=== PATIENT | male | born 1945 | race African-American/Black ===

== ENCOUNTER 2019-03-25 12:26 | Emergency (ER) | payer MEDICARE ==
[2019-03-25 13:27] LABS: #Eosinphils 0.2 thou/uL (0.0-0.7); #Lymphocytes 1.1 thou/uL (1.20-3.40); #Monocytes 0.8 thou/uL (0.11-0.59); #Neutrophils 4.8 thou/uL (1.40-6.50); %Basophils 0.1 % (0.0-1.0); %Eosinophils 2.3 % (0.0-10.0); %Monocytes 11.8 % (0.0-10.0); %Neutrophils 69.8 % (42.0-75.0); Hemoglobin 12.4 g/dL (14.0-18.0); Mean Corpuscular HGB CONC 33.5 g/dL (32.0-36.0); Mean Corpuscular Hemoglobin 28.4 pg (27.0-31.0); Mean Corpuscular Volume 84.8 fL (78.0-98.0); Mean Platelet Volume 7.5 fL (7.4-10.4); Platelet Count 317 thou/uL (130-400); RBC Distribution Width 14.1 % (11.5-14.5); Red Blood Cell (RBC) Count 4.38 mill/uL (4.70-6.10); White Blood Cell (WBC) Count 6.9 thou/uL (4.8-10.8)
[2019-03-25 13:44] LABS: ALT (SGPT) 9 U/L (8-55); AST (SGOT) 11 U/L (5-34); Albumin 3.8 g/dL (3.4-4.8); Alkaline Phosphatase 64 U/L (40-150); Anion Gap 15 mmol/L (10-20); BUN (Urea Nitrogen) 12 mg/dL (8.4-25.7); Bilirubin, Total 0.2 mg/dL (0.2-1.2); Calc. Creatinine Clearance 0 mL/min (70-130); Calcium 9.8 mg/dL (7.8-10.44); Carbon Dioxide 21 mmol/L (23-31); Chloride 105 mmol/L (98-107); Estimated GFR-MDRD Greater than 90; Globulin 3.4 g/dL (2.4-3.5); Glucose 131 mg/dL (83-110); Lipase 34 U/L (8-78); Potassium 3.7 mmol/L (3.5-5.1); Protein, Total 7.2 g/dL (5.8-8.1); Sodium 137 mmol/L (136-145)
[2019-03-25] MEDS ORDERED: Ondansetron PF 4 MG/2 ML Vial ONE (14:16)
[2019-03-25] MEDS ORDERED: Fentanyl 100 MCG/2 ML VIAL ONE (14:17)
[2019-03-25] MEDS ORDERED: Morphine 4 MG/ML VIAL ONE (15:26)
--- NOTE | 2019-03-25 16:00 | RAD ---
EXAM: CHEST ONE VIEW HISTORY: Rib and epigastric abdominal pain started 3 weeks ago. History of prior lung cancer. COMPARISON: 03/15/2019 FINDINGS: Again noted are postsurgical changes of the right hemithorax with generalized volume loss of the righ t hemithorax. There is radiopaque suture material again overlie the right paramediastinal and right hilar region. Right subclavian Mediport catheter remains in place. There are a few pulmonary nodules seen within the right upper and right midlung zone that are seen on prior CTA chest on 03/15/2019. The larger pulmonary nodule in the lateral aspect left upper lobe is not well demonstrated on this st udy. No pleural effusion or consolidation is seen on the left. Again noted is shift of the mediastinal structures to the right. Cardiac silhouette and pulmonary vasculature are within normal l imits. No obvious lytic or sclerotic osseous lesion is seen. Chest is overall stable when compared to prior exam given differences in inspiration. IMPRESSION: 1. Overall stable postsurgical and likely posttreatment changes of the right hemithorax. There was a better depth of inspiration on the right compared to the prior exam. 2. Pulmonary nodules left lung which were better visualized on CTA of the chest on 03/15/2019..
--- NOTE | 2019-03-29 01:03 | EKG ---
Test Reason : CONFIRM DIAGNOSIS Blood Pressure : / mmHG Vent. Rate : 100 BPM Atrial Rate : 100 BPM P-R Int : 126 ms QRS Dur : 078 ms QT Int : 334 ms P-R-T Axes : 065 019 055 degrees QTc Int : 430 ms Normal sinus rhythm Nonspecific ST and T wave abnormality Abnormal ECG Confirmed by DINO ROONEY ([id number]), story editor LYNDA HACKETT ([id number]) on 03/29/2019 1:02:16 AM Referred By: Confirmed By:DINO ROONEY
== END 2019-03-25 16:44 | disposition home or self-care (01) ==
LOC: ERS 12:26
DX: R10.9 Unspecified abdominal pain (principal); E11.9 Type 2 diabetes mellitus without complications; E78.5 Hyperlipidemia, unspecified; I10 Essential (primary) hypertension; E78.00 Pure hypercholesterolemia, unspecified; N40.0 Benign prostatic hyperplasia without lower urinary tract symptoms; Z79.899 Other long term (current) drug therapy; Z79.82 Long term (current) use of aspirin; Z79.84 Long term (current) use of oral hypoglycemic drugs; Z85.118 Personal history of other malignant neoplasm of bronchus and lung
CPT/HCPCS: 71045; 80053; 83690; 85025; 93005; 96361; 96374; 96375; J2270; J2405; J3010

== ENCOUNTER 2019-04-02 11:23 | Outpatient (CLI) | payer MEDICARE ==
--- NOTE | 2019-04-02 16:03 | PET ---
PET W CT Skull to Mid Thigh History: Lung cancer. C34.81 Comparison: Multiple prior chest CT examinations, most recent March 15, 2019 Findings: There is confluent right supraclavicular adenopathy increase in size from the comparison ex aminations measuring up to 3.2 cm in short axis with SUV max 8.7. Left upper lobe pulmonary nodule is similar in size with SUV max of 4.9. There is abnormal FDG avidity within the confluent soft tissue posterior to the right mainstem bronch us with SUV max 7.4. Focal nodularity along the anterior mediastinum may reflect hypertrophic thymic tissue. Small right pericardiophrenic lymph nodes do not have much greater than background FDG avidity. No abnormal radiotracer uptake within the abdomen or pelvis. No abnormal osseous radiotracer uptake. Atelectatic changes lung bases. No free intraperitoneal gas or fluid. Calcified granulomas throughout the spleen and liver. Small fat-containing umbilical hernia. Impression: Findings of disease recurrence of the right hemithorax with metastatic left upper lobe pu lmonary nodule and marked progression of right supraclavicular adenopathy.
== END 2019-04-02 11:24 | disposition home or self-care (01) ==
LOC: PET 11:23
PROVIDERS: ATTEND Internal Medicine Hematology & Oncology
DX: C34.90 Malignant neoplasm of unspecified part of unspecified bronchus or lung (principal); R59.0 Localized enlarged lymph nodes
CPT/HCPCS: 78815; A9552

== ENCOUNTER 2019-05-20 15:19 | Observation (INO) | payer MEDICARE ==
[2019-05-20] MEDS ORDERED: Pantoprazole 40 MG VIAL ONE (17:16)
[2019-05-20] MEDS ORDERED: Dextrose 5% in Water 1,000 ML IV PRN (18:01)
[2019-05-20] MEDS ORDERED: Dextrose 50% Abboject 50 ML SYRINGE SLOW IVP PRN (18:01)
[2019-05-20] MEDS ORDERED: Insulin Regular 300 UNITS/3 ML VIAL SC PRN ×2 (18:01)
[2019-05-20 19:00] VITALS: BMI 22.8
[2019-05-20 19:04] LABS: Hemoglobin 10.2 g/dL (14.0-18.0)
[2019-05-20] MEDS ORDERED: Calcium Carbonate 500 MG ChewTAB PO PRN (19:14)
[2019-05-20] MEDS ORDERED: Ondansetron ODT 4 MG TAB PO PRN (19:14)
[2019-05-20] MEDS ORDERED: Ondansetron PF 4 MG/2 ML Vial IVP PRN (19:14)
[2019-05-20] MEDS ORDERED: Acetaminophen 325 MG TAB PO PRN (19:14)
[2019-05-20] MEDS ORDERED: Nitroglycerin 0.4 MG TAB (25 Tab Bottle) PO PRN (19:16)
[2019-05-20] MEDS ORDERED: PROVENTIL INHALER 6.7 G (200 INHALATIONS) INH PRN (19:17)
--- NOTE | 2019-05-20 19:20 | HP ---
PRIMARY CARE PHYSICIAN: Dr. Beavers. CHIEF COMPLAINT: Bleeding per rectum. HISTORY OF PRESENT ILLNESS: The patient is a 73-year-old male with lung cancer, on chemotherapy, chronic NSAID use for pain, presented to the emergency room at [place] with above complaints. Around 8:30 a.m., he had bright red blood when he was trying to have a bowel movement. His commode was filled with moderate amount of fresh bright blood. There was no melena or hematemesis. No nausea, vomiting, abdominal discomfort reported. He denies similar symptoms in the past. His last bowel movement was 2 days ago. He has lost his appetite. His last chemotherapy was yesterday. He felt dizzy and weak along with shortness of breath during the above episode. He is also on 81 mg aspirin. He underwent EGD and colonoscopy in the last 3-4 years at [place] [facility] by [address] Sanchez. He is currently on 800 mg ibuprofen almost 2-3 times a day for pain control. PAST MEDICAL HISTORY: 1. Lung cancer, currently on chemotherapy. 2. Diabetes mellitus type 2. 3. Hypertension. 4. Hyperlipidemia. 5. Benign prostatic hypertrophy. 6. COPD. PAST SURGICAL HISTORY: 1. Right lobectomy. 2. EGD colonoscopy. 3. 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 Solitario. ALLERGIES: THE PATIENT IS ALLERGIC TO TRAMADOL AND CODEINE. HE IS CURRENTLY ON NORCO FOR PAIN CONTROL. SOCIAL HISTORY: The patient currently lives at home with his . He is full code, makes his own decision with the help of his family. He denies current use of smoking or drug use. FAMILY HISTORY: Negative for heart disease. CURRENT HOME MEDICATION: 1. Tylenol as needed. 2. [place] as needed. 3. Albuterol inhaler as needed. 4. Aspirin 81 mg daily. 5. Lipitor 10 mg daily. 6. Cardizem extended release 120 mg daily. 7. Advair Diskus 500/50 b.i.d. 8. Folic acid daily. 9. Ibuprofen 800 mg 3 times daily as needed. 10. Remeron 30 mg at bedtime. 11. Multivitamin one tablet daily. 12. Flomax 0.8 mg at bedtime. PHYSICAL EXAMINATION: VITAL SIGNS: Temperature 98.9, respiration of 18, pulse rate of 117 with a blood pressure of 118/72, and O2 saturation 96% on room air. GENERAL: 73-year-old male, in no apparent distress. Feels generally weak and fatigued. HEENT: Head, atraumatic and normocephalic. Sclerae anicteric. Dry mucous membranes. No oral lesion. NECK: Supple. No JVD appreciated. No carotid bruit. LUNGS: Showed diminished air entry at bilateral bases. No wheezing, rales, or rhonchi. HEART: S1 and S2 present. Regular rate and rhythm. No rubs or gallops. ABDOMEN: Soft, nontender. Bowel sounds present. No rebound or guarding. No costovertebral angle tenderness. Rectal examination in the emergency room showed brown stool without any blood. No anal fissure or external hemorrhoids were seen. EXTREMITIES: No edema or calf tenderness. NEUROLOGY: Grossly nonfocal, moves all 4 extremities. PSYCHIATRY: Alert, awake, oriented x3. SKIN: Warm and dry. LYMPH NODES: No palpable lymph nodes in the neck. LABORATORY DATA: WBC 10.3 with hemoglobin 9.5, hematocrit 30.2, platelet of 445. PT 15.5 and INR 1.2, PTT 44.1. Chemistry showed sodium 139, potassium 4.4, chloride 102, bicarb 24, BUN 16, creatinine 1.02, glucose of 187. BNP was 336. IMAGING STUDIES: Chest x-ray by my review was negative for new findings. It showed left upper lobe mass. EKG by my review showed sinus tachycardia with PVCs. IMPRESSION: 1. Lower gastrointestinal bleeding suspected secondary to diverticular bleed versus internal hemorrhoids. Upper GI bleeding appears to be less likely. 2. Acute blood loss anemia. 3. Shortness of breath with elevated BNP, rule out congestive heart failure. 4. Sinus tachycardia secondary to lower gastrointestinal bleeding. 5. Premature ventricular contractions. 6. Chronic kidney disease, stage 2. 7. Lung cancer with last chemotherapy on 05/19/2019. 8. Chronic pain syndrome, on chronic narcotic and NSAIDS. 9. Diabetes mellitus type 2. 10. Hypertension. 11. Hyperlipidemia. 12. Benign prostatic hypertrophy. PLAN: The patient will be monitored on the telemetry unit. He is currently on Protonix drip. We will change to IV 40 mg Protonix b.i.d. Gastroenterology Team will be consulted. We will type and screen. Due to PVCs, we will check his magnesium. Also check his iron profile. Recheck H and H in a.m. Check orthostatic vitals in a.m. We will resume selected home medication except for aspirin and ibuprofen. Clear liquid diet tonight. Vital signs q.4 hourly. We will also try to obtain EGD and colonoscopy report from [facility]. We will get an echocardiogram due to shortness of breath. Plan of care was discussed with the patient and the family in detail, he stated understanding. Job ID: [id number]
[2019-05-20 19:23] LABS: Magnesium 2.7 mg/dL (1.6-2.6)
[2019-05-20] MEDS: Mirtazapine 30 MG TAB PO SCH (20:17)
[2019-05-20] MEDS: Tamsulosin HCl 0.4 MG CAP PO SCH (20:17)
[2019-05-20] MEDS: HYDROcodone/Acetaminophen 5/325 mg Tablet PO PRN (20:27)
[2019-05-21 06:02] LABS: #Monocytes 0.9 thou/uL (0.11-0.59); #Neutrophils 7.4 thou/uL (1.40-6.50); %Basophils 0.1 % (0.0-1.0); %Eosinophils 0.3 % (0.0-10.0); %Lymphocytes 10.7 % (21.0-51.0); %Monocytes 9.1 % (0.0-10.0); %Neutrophils 79.9 % (42.0-75.0); Hemoglobin 9.9 g/dL (14.0-18.0); Mean Corpuscular HGB CONC 32.4 g/dL (32.0-36.0); Mean Corpuscular Hemoglobin 26.9 pg (27.0-31.0); Mean Corpuscular Volume 83.1 fL (78.0-98.0); Mean Platelet Volume 6.9 fL (7.4-10.4); Platelet Count 466 thou/uL (130-400); RBC Distribution Width 14.1 % (11.5-14.5); Red Blood Cell (RBC) Count 3.66 mill/uL (4.70-6.10); White Blood Cell (WBC) Count 9.3 thou/uL (4.8-10.8)
[2019-05-21 06:18] LABS: Anion Gap 17 mmol/L (10-20); BUN (Urea Nitrogen) 17 mg/dL (8.4-25.7); Calc. Creatinine Clearance 62 mL/min (70-130); Calcium 9.4 mg/dL (7.8-10.44); Carbon Dioxide 23 mmol/L (23-31); Chloride 106 mmol/L (98-107); Estimated GFR-MDRD Greater than 90; Glucose 121 mg/dL (83-110); Potassium 4.6 mmol/L (3.5-5.1); Sodium 141 mmol/L (136-145)
[2019-05-21] MEDS: Mometasone/Formoterol 120 PUFF INHALER INH SCH ×2 (07:12→18:27)
[2019-05-21] MEDS ORDERED: FLU VACC TS2019-20(65YR UP)/PF 180 MCG/0.5 ML SYRINGE IM ONE (09:00)
[2019-05-21] MEDS: Atorvastatin Calcium 10 MG TAB PO SCH (09:37)
[2019-05-21] MEDS: Folic Acid 1 MG TAB PO SCH (09:40)
[2019-05-21] MEDS: Pantoprazole 40 MG VIAL IVP SCH ×2 (09:41→20:28)
[2019-05-21] MEDS: HYDROcodone/Acetaminophen 5/325 mg Tablet PO PRN ×2 (09:50→20:42)
[2019-05-21] MEDS ORDERED: Polyethylene Glycol 3350 17 GM Packet PO SCH (13:45)
--- NOTE | 2019-05-21 14:13 | CON ---
DATE OF CONSULTATION: 05/21/2019 CHIEF COMPLAINT: Blood in the stool. HISTORY OF PRESENT ILLNESS: Mr. Pickering is a 73-year-old man who had a red bloody stool mixed with brown stool yesterday morning. He came to the emergency room for further care. He has had no nausea or vomiting. No black stools. No abdominal pain or rectal pain associated with this. He has had constipation lately and has a bowel movement most days, but the stools are hard and he has had to strain at them. He has been taking hydrocodone 4 times a day. This was not completely controlling his pain, so he also started taking ibuprofen 800 mg 4 times a day. He has had history of lung cancer and is undergoing chemotherapy for that. He reports colonoscopy in 2016 was normal. This was done in [place] by Dr. Sanchez. EGD was apparently done at that time as well. PAST MEDICAL HISTORY: Lung cancer, currently on chemotherapy. Diabetes mellitus, hypertension, hyperlipidemia, BPH, and COPD. PAST SURGICAL HISTORY: Right lung lobectomy and removal of metastatic lesion from the vocal cord. FAMILY HISTORY: Negative for GI malignancy. SOCIAL HISTORY: No alcohol, tobacco, or drugs. ALLERGIES: TRAMADOL AND CODEINE. MEDICATIONS: Prior to admission, [place], Tylenol, albuterol, aspirin, Lipitor, Cardizem, Advair, ibuprofen 800 mg 3-4 times per day, Remeron, Flomax, multiple vitamin. He has been taking senna 1 tablet daily lately. REVIEW OF SYSTEMS: Negative x10 systems reviewed, except as stated in history of present illness. PHYSICAL EXAMINATION: VITAL SIGNS: Temperature 98.4, pulse 100, blood pressure 112/66. GENERAL: He is in no acute distress. Alert and oriented x3. HEENT: Eyes have no scleral icterus. Oropharynx is clear without lesions. NECK: No cervical or supraclavicular lymphadenopathy. LUNGS: Clear to auscultation bilaterally. HEART: Regular rate and rhythm without murmur. ABDOMEN: Soft, nontender, and nondistended. Bowel sounds are present. EXTREMITIES: No lower extremity edema. RECTAL: Reveals light brown stool in the rectal vault. LABORATORY DATA: Hemoglobin is 9.9, white blood cell count 9.3, platelets 466. Baseline hemoglobin back 2 months ago was 12.4. INR 1.2 and creatinine 0.97. IMPRESSION: 1. Hematochezia. This is most consistent with hemorrhoidal bleeding. He had 1 bloody stool yesterday morning and 1 this morning. These are brown stools mixed with red blood. Rectal exam currently reveals no blood in the rectal vault and only light brown stool. He had a negative colonoscopy in 2016. We will request that report from [place]. He certainly has no signs of ongoing overt bleeding now. His anemia is likely multifactorial, but he does not appear to have a significant GI bleed. He did have iron studies that showed an iron of 54, TIBC of 166, and a ferritin of a 1000. 2. Chronic opioid induced constipation. We will start MiraLAX 17 g twice daily. If this is inadequate, then consideration for Movantik or continuation of the stimulant laxatives can be considered. RECOMMENDATIONS: 1. MiraLAX twice daily. 2. Stop ibuprofen. 3. Obtain colonoscopy report from [place]. 4. I would anticipate the patient can be discharged home this evening or tomorrow morning. I will sign off for now. Please call if GI can be of assistance. Job ID: [id number]
[2019-05-21] MEDS: Tamsulosin HCl 0.4 MG CAP PO SCH (20:28)
[2019-05-21] MEDS: Mirtazapine 30 MG TAB PO SCH (20:28)
[2019-05-21] MEDS: Polyethylene Glycol 3350 17 GM Packet PO SCH (20:29)
--- NOTE | 2019-05-21 22:35 | PDOC.HOSPP ---
- Subjective Encounter Date: 05/21/19 Encounter Time: 17:00 Subjective: Patient seen and examined for GI bleeding. No new bleeding episodes. Feels gen weak/lightheaded. No other complaints. No overnight events - Objective Vital Signs & Weight: Vital Signs (12 hours) Temp Pulse Resp BP Pulse Ox 05/21/19 19:50 98 F 82 14 127/61 96 05/21/19 15:28 98.6 F 94 18 115/63 96 05/21/19 11:25 98.4 F 100 20 112/66 97 Weight Admit Weight 145 lb 12.8 oz Weight 145 lb 12.8 oz I&O: 05/20/19 05/21/19 05/22/19 06:59 06:59 06:59 Intake Total 720 1040 Balance 720 1040 Result Diagrams: 05/21/19 04:57 05/21/19 04:57 Additional Labs: Accuchecks 05/21/19 05/21/19 05/21/19 20:32 16:54 10:48 POC Glucose 196 H 162 H 138 H EKG Reviewed by me: Yes (Tele SR) Hospitalist ROS - Review of Systems Respiratory: denies: cough, dry, shortness of breath, hemoptysis, SOB with excertion, pleuritic pain, sputum, wheezing, other Cardiovascular: denies: chest pain, palpitations, orthopnea, paroxysmal noc. dyspnea, edema, light headedness, other - Medication Medications: Active Medications Generic Name Dose Route Start Last Admin Trade Name Freq PRN Reason Stop Dose Admin Hydrocodone Bitart/Acetaminophen 1 tab 05/20/19 19:14 05/21/19 20:42 [place] 5/325 PO 1 tab Q4H PRN Administration Moderate Pain (4-6) Atorvastatin Calcium 10 mg 05/21/19 09:00 05/21/19 09:37 Lipitor PO 10 mg DAILY CELESTE Administration Diltiazem HCl 120 mg 05/21/19 09:00 05/21/19 09:38 Cardizem Cd PO 120 mg DAILY CELESTE Administration Folic Acid 0.5 mg 05/21/19 09:00 05/21/19 09:40 Folvite PO 0.5 mg DAILY CELESTE Administration Mirtazapine 30 mg 05/20/19 21:00 05/21/19 20:28 Remeron PO 30 mg HS CELESTE Administration Mometasone Furoate/Formoterol Fumar 2 puff 05/21/19 06:30 05/21/19 18:27 Dulera 200 Mcg/5 Mcg Inhaler INH 2 puff BID-RT CELESTE Administration Pantoprazole Sodium 40 mg 05/21/19 09:00 05/21/19 20:28 Protonix IVP 40 mg Q12HR CELESTE Administration Polyethylene Glycol 17 gm 05/21/19 21:00 05/21/19 20:29 Miralax PO 17 gm BID CELESTE Administration Tamsulosin HCl 0.8 mg 05/20/19 21:00 05/21/19 20:28 Flomax PO 0.8 mg HS CELESTE Administration - Exam Heart: RRR, no gallops Respiratory: CTAB, no rales Gastrointestinal: soft, non-tender, non-distended, normal bowel sounds Extremities: no edema Hosp A/P - Plan DVT proph w/SCDs 1. Lower gastrointestinal bleeding suspected secondary to diverticular bleed versus internal hemorrhoids. 2. Acute blood loss anemia. 3. Shortness of breath with elevated BNP, rule out congestive heart failure. 4. Sinus tachycardia secondary to lower gastrointestinal bleeding. 5. Premature ventricular contractions. 6. Chronic kidney disease, stage 2. 7. Lung cancer with last chemotherapy on 05/19/2019. 8. Chronic pain syndrome, on chronic narcotic and NSAIDS. 9. Diabetes mellitus type 2. 10. Hypertension. 11. Hyperlipidemia. 12. Benign prostatic hypertrophy. PLAN: GI input appreciated H/H in AM DC in AM if stable Await Echo Cont to monitor Cont other meds Await records from Dr Sanchez
[2019-05-22 05:22] LABS: Hemoglobin 9.1 g/dL (14.0-18.0)
[2019-05-22] MEDS: Mometasone/Formoterol 120 PUFF INHALER INH SCH (07:33)
[2019-05-22 08:05] VITALS: BP 108/57; TEMP 97.5
[2019-05-22] MEDS: Folic Acid 1 MG TAB PO SCH (08:50)
[2019-05-22] MEDS: Pantoprazole 40 MG VIAL IVP SCH (08:50)
[2019-05-22] MEDS: Polyethylene Glycol 3350 17 GM Packet PO SCH (08:51)
[2019-05-22] MEDS: Atorvastatin Calcium 10 MG TAB PO SCH (08:51)
--- NOTE | 2019-05-22 10:37 | DIS ---
DATE OF ADMISSION: 05/20/2019 DATE OF DISCHARGE: 05/22/2019 DISCHARGE DISPOSITION: Home. FOLLOWUP: 1. Follow up with primary care physician, Dr. Beavers in 1 week. 2. Follow up with Dr. Sanchez, Gastroenterology in [place] in 1 to 2 weeks. DISCHARGE MEDICATIONS: 1. Protonix 40 mg b.i.d. 2. MiraLAX 17 g b.i.d. All other home medications were left unchanged. The patient was seen and examined on the day of discharge. Denies any new complaints. No new rectal bleeding. The patient had 3 bowel movements in this hospital without any hematochezia or melena. SIGNIFICANT LABORATORY DATA: H and H at discharge 9.1 and on admission, it was 9.5. Reticulocyte is 1.0. Vitamin B12 is 1848. Folic acid 12.7, iron was 54, TIBC 166, ferritin 1091. Sodium 141, potassium 4.6. Echocardiogram showed left ventricular ejection fraction 55% to 60% with a medium-sized pericardial effusion that does not appear to be hemodynamically significant. 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 Bernal. BRIEF HOSPITAL COURSE: The patient is a 73-year-old male with lung cancer, on chemotherapy, presented to the hospital with bleeding per rectum. This happened around 8:30 a.m. on May 20, 2019. His commode was filled with moderate amount of fresh blood. He did not have any other recurrence of this episode. He was monitored in the hospital for observation. He was evaluated by Dr. Bernal. His rectal examination was negative. He underwent a colonoscopy [address] Sanchez that was negative except for colonic polyp. 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 He was advised to follow up with his primary gastroenterology as outpatient. He was advised to discontinue ibuprofen. FINAL DIAGNOSES: 1. Lower gastrointestinal bleed, suspected secondary to internal hemorrhoids versus diverticular bleed. 2. Constipation. 3. Acute blood loss anemia. 4. Shortness of breath with elevated BNP, probably secondary to #1. His echocardiogram showed normal ejection fraction. 5. Moderate pericardial effusion that does not appear to be hemodynamically significant. Primary care physician advised to follow. 6. Sinus tachycardia on admission, resolved. 7. Premature ventricular contractions on EKG on admission. 8. Chronic kidney disease, stage 2. 9. Lung cancer, on chemotherapy, followed by Dr. Devi. 10. Chronic pain syndrome. The patient was advised to discontinue NSAIDs. 11. Diabetes mellitus, type 2. 12. Hypertension. 13. Hyperlipidemia. 14. Benign prostatic hypertrophy. 15. History of anemia secondary to chronic disease. 16. Codeine and tramadol allergy. PLAN: Plan of care was discussed with the patient and the family in detail. They stated understanding. Job ID: [id number]
== END 2019-05-22 12:10 | disposition home or self-care (01) ==
LOC: ERS 15:19 → 2SW 18:28
PROVIDERS: ADMIT Internal Medicine; ATTEND Internal Medicine
DX: K62.5 Hemorrhage of anus and rectum (principal); D62 Acute posthemorrhagic anemia; C34.91 Malignant neoplasm of unspecified part of right bronchus or lung; K59.03 Drug induced constipation; I49.3 Ventricular premature depolarization; T40.2X5A Adverse effect of other opioids, initial encounter; E78.5 Hyperlipidemia, unspecified; N40.0 Benign prostatic hyperplasia without lower urinary tract symptoms; J44.9 Chronic obstructive pulmonary disease, unspecified; R79.89 Other specified abnormal findings of blood chemistry; R00.0 Tachycardia, unspecified; N18.2 Chronic kidney disease, stage 2 (mild); I12.9 Hypertensive chronic kidney disease with stage 1 through stage 4 chronic kidney disease, or unspecified chronic kidney disease; E11.22 Type 2 diabetes mellitus with diabetic chronic kidney disease; G89.4 Chronic pain syndrome; I31.3 Pericardial effusion (noninflammatory); D63.8 Anemia in other chronic diseases classified elsewhere; Z79.82 Long term (current) use of aspirin; Z79.51 Long term (current) use of inhaled steroids; Z79.899 Other long term (current) drug therapy; Z88.5 Allergy status to narcotic agent; Z90.2 Acquired absence of lung [part of]
CPT/HCPCS: 80048; 82607; 82728; 82746; 82962 ×3; 83540; 83550; 83735; 84484; 85014 ×2; 85018 ×2; 85025; 85046; 86850; 86900; 86901; 90662; 93306; 94640 ×2; 96365; 96375; 96376 ×3; 97139; 99285; G0008; G0378 ×3; 36415; 36416; 90471; C9113; J3490

== ENCOUNTER 2019-06-21 15:38 | Inpatient (IN) | payer MEDICARE ==
[~2019-06-21 15:38] MED LIST: Iopamidol-370 76% 500 ML 1 ML ONE
[2019-06-21 16:50] LABS: #Lymphocytes 0.8 thou/uL (1.20-3.40); #Monocytes 1.3 thou/uL (0.11-0.59); #Neutrophils 8.4 thou/uL (1.40-6.50); %Basophils 0.1 % (0.0-1.0); %Eosinophils 0.4 % (0.0-10.0); %Neutrophils 79.5 % (42.0-75.0); Hemoglobin 8.7 g/dL (14.0-18.0); Mean Corpuscular Hemoglobin 26.2 pg (27.0-31.0); Mean Corpuscular Volume 81.8 fL (78.0-98.0); Mean Platelet Volume 8.3 fL (7.4-10.4); Platelet Count 272 thou/uL (130-400); RBC Distribution Width 17.4 % (11.5-14.5); Red Blood Cell (RBC) Count 3.33 mill/uL (4.70-6.10); White Blood Cell (WBC) Count 10.6 thou/uL (4.8-10.8)
[2019-06-21 17:11] LABS: ALT (SGPT) 16 U/L (8-55); AST (SGOT) 21 U/L (5-34); Albumin 3.6 g/dL (3.4-4.8); Alkaline Phosphatase 72 U/L (40-110); Anion Gap 17 mmol/L (10-20); BUN (Urea Nitrogen) 10 mg/dL (8.4-25.7); Bilirubin, Total 0.4 mg/dL (0.2-1.2); Calc. Creatinine Clearance 0 mL/min (70-130); Calcium 9.7 mg/dL (7.8-10.44); Carbon Dioxide 20 mmol/L (23-31); Chloride 104 mmol/L (98-107); Estimated GFR-MDRD Greater than 90; Glucose 107 mg/dL (83-110); Potassium 4.3 mmol/L (3.5-5.1); Protein, Total 7.6 g/dL (5.8-8.1); Sodium 137 mmol/L (136-145)
--- NOTE | 2019-06-21 18:16 | CT ---
CTA CHEST WITH CONTRAST Technique: Axial tomograms were obtained with multiplanar reconstruction and 3D post processing. Indications: Cough, shortness of breath. History of neoplasm. Comparison: CTA chest 03-15-19 FINDINGS: Pleural thickening and scarring in the right apical region is again noted. There is volume loss and s hift of the mediastinum to the right in the upper chest which is a stable finding from the prior stud y. No evidence of pulmonary embolus identified. Thoracic aorta is opacified with no evidence of dissecti on. Diffuse soft tissue opacity of the mediastinum is a stable finding. Review of lung chavez show no inflammatory infiltrate. There are nodules scattered throughout the lef t lung which have increased in number when compared to the exam of 03-15-19. Small nodules seen in the right midlung field are again noted, similar to the prior exam. Numerous focal calcifications at the liver and spleen are again seen, unchanged. IMPRESSION: 1. Post-operative changes in the right chest with diffuse pleural thickening and mediastinal opacity appears stable. Shift of the mediastinum to the right again noted. 2. No evidence of pulmonary embolus. 3. Bilateral pulmonary nodules have increased in number. POS: AGW
[2019-06-21 18:47] LABS: Bacteria/HPF None Seen HPF (None Seen); Bilirubin Negative (Negative); Blood, Urine 3+ (Negative); Clarity Clear (Clear); Glucose, Urine (Dipstick) Normal (Negative); Leukocyte Negative Leu/uL (Negative); Nitrite Negative (Negative); Protein, Urine (Dipstick) 30 mg/dL (Neg-Trace); RBC/HPF Greater than 50 HPF (0-3); Squamous Epithelial None Seen HPF (0-3); Urobilinogen Normal mg/dL (Less than 2)
[2019-06-21 19:28] LABS: Phosphorus 3.2 mg/dL (2.3-4.7)
[2019-06-21] MEDS ORDERED: Acetaminophen 650 MG Suppository PR PRN (19:43)
[2019-06-21] MEDS ORDERED: Dextrose 50% Abboject 50 ML SYRINGE SLOW IVP PRN (20:21)
[2019-06-21] MEDS ORDERED: Dextrose 5% in Water 1,000 ML IV PRN (20:21)
[2019-06-21] MEDS ORDERED: HumaLOG 300 UNITS/3 ML VIAL SC PRN (20:21)
[2019-06-21] MEDS ORDERED: hydrALAZINE 20 MG/ML VIAL SLOW IVP PRN (20:22)
--- NOTE | 2019-06-21 20:32 | HP ---
PRIMARY CARE PROVIDER: Dr. Adán Beavers. CHIEF COMPLAINT: Inability to tolerate oral intake. HISTORY OF PRESENT ILLNESS: Mr. Raheel Beverly is a pleasant 74-year-old gentleman who was seen at [facility] on 06/21/2019. He was hospitalized at this facility from 05/21 to 05/22, of this year for lower GI bleed, suspected secondary to internal hemorrhoids. The patient is able to provide history. Collateral history was obtained from discussion with the patient's , discussion with emergency room physician and review of medical records. The patient was recently diagnosed with recurrence of lung cancer after being cancer-free for 5 years. He has been started on chemotherapy. His last chemotherapy was 2 weeks ago. Over the last few days, he has been spitting up thick mucus. He was seen by his oncologist, Dr. Devi 2 weeks ago. Oncologist recommended 3 Ensure a today. The patient was also told that if he is unable to tolerate, he will need a feeding tube. Today morning, the patient's tried to feed him and he started spitting up the food. She therefore brought him to the emergency room. He also reportedly lost 40 pounds over this summer. The patient does not have any abdominal pain or chest pain. REVIEW OF SYSTEMS: All systems were reviewed and found to be negative except for the pertinent positives mentioned above. PAST MEDICAL HISTORY: Benign prostate hypertrophy, diabetes mellitus type 2, dyslipidemia, hypertension, lung cancer with metastasis to lymph nodes. PAST SURGICAL HISTORY: Right lobectomy. SOCIAL HISTORY: No history of tobacco use, alcohol use, or recreational drug use. FAMILY HISTORY: Diabetes mellitus and heart disease in his mother and colon cancer in his father. CODE STATUS: I discussed his code status. He is DNAR. ALLERGIES: CODEINE AND TRAMADOL. CURRENT MEDICATIONS: 1. Metformin 500 mg 3 times a day. 2. Tamsulosin 0.8 mg at bedtime. 3. Losartan 50 mg daily. 4. Aspirin 81 mg daily. 5. Atorvastatin 10 mg at bedtime. 6. Cartia XT 120 mg daily. 7. Mirtazapine 30 mg at bedtime. 8. PreserVision one tablet 2 times a day. 9. Multivitamins one tablet daily. 10. Advair Diskus 1 puff 2 times a day. 11. Tramadol 50 to 100 mg every 6 hours as needed. 12. [place] 10/325 mg p.r.n. PHYSICAL EXAMINATION: GENERAL: On examination, Mr. Raheel Beverly is awake and alert, not in acute distress. He appears malnourished. VITAL SIGNS: Weight is 61.23 kg. Blood pressure is 129/71, pulse 103, respiratory rate 18, and oxygen saturation 100% on room air. He is afebrile. EYES: No scleral icterus, no conjunctival pallor. ENT: Dry mucosal membranes. No oropharyngeal erythema or exudates. NECK: Supple, nontender, trachea is midline. RESPIRATORY: Accessory muscles of breathing are not active. Chest wall movements are symmetric bilaterally. Diminished breath sounds at both bases. CARDIOVASCULAR: S1 and S2 are heard, tachycardic and regular. Peripheral pulses palpable. NEUROLOGIC: Cranial nerves 2 through 12 are intact. MUSCULOSKELETAL: The patient is able to move all 4 extremities. SKIN: No rashes. PSYCHIATRIC: Normal mood, normal affect. The patient is oriented to person, place, and time. LABORATORY DATA: Mr. Raheel Beverly's labs and investigations were reviewed. Electrocardiogram shows sinus tachycardia. CT angiogram of the chest showed postoperative changes in the right chest with diffuse pleural thickening and mediastinal opacity, which appears stable. He has shift of the mediastinum to the right, demonstrated previously. No evidence of pulmonary embolus. Bilateral pulmonary nodules have increased in number. He has normal electrolytes, normal creatinine, unremarkable LFTs, mildly elevated BNP of 202.9, normal troponin I, normal white count, normocytic anemia with hemoglobin 8.7, and normal platelet count. Urinalysis is negative for nitrite and leukocyte esterase. ASSESSMENT AND PLAN: Mr. Raheel Beverly is a pleasant 74-year-old gentleman, who was seen at [facility] on 06/21/2019. His problem list includes: 1. Poor oral intake: Suspected to be secondary to esophageal obstruction extrinsically from lung mass. General Surgery Service being consulted by emergency room physician for possible placement of G tube. The patient will be admitted to the hospital for further management. 2. Diabetes mellitus type 2: We will start patient on Accu-Cheks and insulin sliding scale. 3. Benign prostate hypertrophy: We will resume tamsulosin when the patient is able to take oral medications. 4. Hypertension: The patient currently n.p.o., we will add p.r.n. IV hydralazine. Many thanks for allowing me to participate in your patient's care. Please feel free to contact me with any questions or concerns. LEVEL OF RISK: Moderate. LEVEL OF COMPLEXITY: Moderate. Job ID: [id number] [id number]
[2019-06-21 21:35] VITALS: BMI 20.4
[2019-06-21] MEDS: Sodium Chloride 0.9% 1,000 ML IV SCH (21:45)
[2019-06-22 06:10] LABS: #Lymphocytes 0.8 thou/uL (1.20-3.40); #Monocytes 1.2 thou/uL (0.11-0.59); #Neutrophils 7.2 thou/uL (1.40-6.50); %Basophils 0.1 % (0.0-1.0); %Eosinophils 0.5 % (0.0-10.0); %Lymphocytes 8.8 % (21.0-51.0); %Monocytes 12.6 % (0.0-10.0); Hemoglobin 8.6 g/dL (14.0-18.0); Mean Corpuscular HGB CONC 32.3 g/dL (32.0-36.0); Mean Corpuscular Hemoglobin 26.6 pg (27.0-31.0); Mean Corpuscular Volume 82.3 fL (78.0-98.0); Mean Platelet Volume 8.3 fL (7.4-10.4); Platelet Count 253 thou/uL (130-400); RBC Distribution Width 17.4 % (11.5-14.5); Red Blood Cell (RBC) Count 3.22 mill/uL (4.70-6.10); White Blood Cell (WBC) Count 9.2 thou/uL (4.8-10.8)
[2019-06-22] MEDS: Sodium Chloride 0.9% 1,000 ML IV SCH ×3 (06:16→22:33)
[2019-06-22 06:34] LABS: Anion Gap 15 mmol/L (10-20); BUN (Urea Nitrogen) 8 mg/dL (8.4-25.7); Calc. Creatinine Clearance 62 mL/min (70-130); Calcium 9.2 mg/dL (7.8-10.44); Carbon Dioxide 20 mmol/L (23-31); Chloride 109 mmol/L (98-107); Estimated GFR-MDRD Greater than 90; Glucose 90 mg/dL (83-110); Sodium 140 mmol/L (136-145)
--- NOTE | 2019-06-22 11:24 | CON ---
DATE OF CONSULTATION: 06/22/2019 CHIEF COMPLAINT: Trouble swallowing. HISTORY OF PRESENT ILLNESS: Mr. Pickering is a 74-year-old man with a history of lung cancer with mediastinal adenopathy. Over the last several months when he swallows food, it only goes down part way and then he has to vomit or cough the food back up. He was transitioned to liquids and Ensure supplements; however, he has continued to lose 30+ pounds over the last few months. He has had no nausea associated with this. No abdominal pain. No diarrhea, constipation, or blood in the stool. He did have radiation to the lung cancer back in 2018. He has just local disease primarily. GI was consulted to evaluate for gastrostomy tube placement. PAST MEDICAL HISTORY: 1. Lung cancer with metastatic disease to the mediastinal lymph node, status post chemotherapy and radiation. 2. BPH. 3. Diabetes mellitus, type 2. 4. Hyperlipidemia. 5. Hypertension. PAST SURGICAL HISTORY: Right lung lobectomy. FAMILY HISTORY: Positive for colon cancer in his father. HABITS: No ongoing alcohol, tobacco, or drugs. ALLERGIES: CODEINE AND TRAMADOL. MEDICATIONS PRIOR TO ADMISSION: 1. Metformin. 2. Tamsulosin. 3. Losartan. 4. Aspirin. 5. Atorvastatin. 6. Cartia. 7. Mirtazapine. 8. Advair. 9. Tramadol. 10. [place]. 11. Multivitamin. REVIEW OF SYSTEMS: Negative x10 systems reviewed except as stated in history of present illness. PHYSICAL EXAMINATION: VITAL SIGNS: Temperature 98.1, pulse 99, oxygen 100%, and blood pressure 129/74. GENERAL: He is in no acute distress. Alert and oriented x3. HEENT: Eyes have no scleral icterus. Oropharynx is clear without lesions. No cervical or supraclavicular lymphadenopathy. LUNGS: Clear to auscultation bilaterally. HEART: Regular rate and rhythm without murmur. ABDOMEN: Soft, nontender, and nondistended. Bowel sounds are present. He is cachectic. EXTREMITIES: No lower extremity edema. LABORATORY DATA: White blood cell count 9.2, hemoglobin 8.6, and platelets 253. Creatinine 0.94, albumin 3.6, bilirubin 0.4, AST 21, ALT 16, and alkaline phosphatase 72. IMPRESSION: 1. Lung cancer, metastatic to the mediastinal lymph nodes, status post chemotherapy and radiation in the past. 2. Protein malnutrition and severe weight loss. 3. Esophageal dysphagia, believed to be secondary to impingement of the lung cancer on the esophagus with the mediastinal lymph nodes. Stricture related to radiation would be much less likely. RECOMMENDATIONS: 1. We will plan EGD with percutaneous endoscopic gastrostomy tube placement today. 2. Preprocedure antibiotics. Job ID: [id number]
[2019-06-22] MEDS ORDERED: Ketamine 50 MG/ML (10ML VIAL) ONE (12:49)
[2019-06-22] MEDS ORDERED: Ondansetron HCl/PF 4 MG/2 ML Vial IVP PRN (13:33)
[2019-06-22] MEDS ORDERED: Promethazine HCl 25 MG/ML VIAL SLOW IVP PRN (13:33)
[2019-06-22] MEDS ORDERED: Meperidine HCl/PF 25 MG/ML VIAL SLOW IVP PRN (13:33)
[2019-06-22] MEDS ORDERED: Promethazine HCl 25 MG/ML VIAL IM PRN (13:33)
[2019-06-22] MEDS ORDERED: PROPOFOL 200 MG/20 ML VIAL ONE (14:00)
[2019-06-22] MEDS ORDERED: Lidocaine 1% PF 5 ML VIAL ONE (14:00)
[2019-06-22] MEDS ORDERED: Morphine 2 MG/ML SYRINGE SLOW IVP PRN (17:22)
[2019-06-22] MEDS ORDERED: Pancrelipase DR 12000 1 CAP FS PRN (17:35)
[2019-06-22] MEDS ORDERED: Sodium Bicarbonate Tab 325 MG TAB PER TUBE PRN (17:35)
--- NOTE | 2019-06-22 19:23 | PDOC.HOSPP ---
- Subjective Encounter Date: 06/22/19 Encounter Time: 10:20 Subjective: Pt seen for followup re: esophageal obstruction. Did not sleep well, no new complaints today. - Objective Vital Signs & Weight: Vital Signs (12 hours) Temp Pulse Resp BP Pulse Ox 06/22/19 15:15 97.3 F L 95 15 108/65 99 06/22/19 14:45 98.3 F 101 H 16 122/76 98 06/22/19 14:25 84 18 117/73 100 06/22/19 14:09 98.2 F 84 18 117/73 100 06/22/19 11:40 97.6 F 99 14 119/73 100 06/22/19 09:00 100 06/22/19 07:28 98.1 F 100 15 129/74 100 Weight Admit Weight 130 lb 4.8 oz Weight 130 lb 4.8 oz I&O: 06/21/19 06/22/19 06/23/19 06:59 06:59 06:59 Intake Total 800 Output Total 1050 Balance -250 Result Diagrams: 06/22/19 04:55 06/22/19 04:55 Additional Labs: Accuchecks 06/22/19 06/22/19 06/22/19 17:09 11:23 05:54 POC Glucose 92 93 97 06/22/19 00:29 POC Glucose 97 Labs and MARs reviewed by pa Hospitalist ROS - Review of Systems Constitutional: reports: weakness. denies: fever, chills, sweats, malaise Cardiovascular: denies: chest pain, palpitations, orthopnea, paroxysmal noc. dyspnea, edema, light headedness Gastrointestinal: reports: other (difficulty swallowing) - Medication Medications: Active Medications Generic Name Dose Route Start Last Admin Trade Name Freq PRN Reason Stop Dose Admin Sodium Chloride 1,000 mls @ 100 mls/hr 06/21/19 20:00 06/22/19 16:03 Normal Saline 0.9% IV Not Given .Q10H CELESTE Morphine Sulfate 2 mg 06/22/19 17:22 06/22/19 17:34 Morphine SLOW IVP 2 mg Q4H PRN Administration Pain Sodium Chloride 10 ml 06/22/19 09:00 06/22/19 09:44 Flush - Normal Saline IVF Not Given Q12HR CELESTE - Exam General - other findings: Severe protein calorie alnutrition ENT: dry oral mucosa Neck: supple Heart: RRR Respiratory: CTAB Gastrointestinal: soft, non-tender Skin: no rashes Psychiatric: normal affect, normal behavior Hosp A/P (1) Decreased oral intake Code(s): R63.8 - OTHER SYMPTOMS AND SIGNS CONCERNING FOOD AND FLUID INTAKE Status: Acute (2) Dehydration Code(s): E86.0 - DEHYDRATION Status: Acute (3) Severe protein-calorie malnutrition Code(s): E43 - UNSPECIFIED SEVERE PROTEIN-CALORIE MALNUTRITION Status: Chronic (4) 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 Tube feeds per dietitian recommendations.
--- NOTE | 2019-06-22 20:16 | OP ---
DATE OF PROCEDURE: 06/22/2019 PROCEDURE PERFORMED: Esophagogastroduodenoscopy with percutaneous endoscopic gastrostomy tube placement. PREOPERATIVE DIAGNOSIS: Esophageal dysphagia secondary to external compression of the esophagus from his mediastinal mass. DESCRIPTION OF PROCEDURE: Informed consent was obtained from the patient. He was sedated with total intravenous anesthesia. The bite block was placed and the endoscope was advanced easily to the second portion of the duodenum and retroflexion was performed in the stomach. The esophagus had 3 ulcers in the proximal esophagus measuring 8 mm to 1.5 cm. These ulcers were located just above an area of external compression in the mid esophagus. There was also some retained food particles above the area of external compression. The food was advanced down into the stomach with the endoscope. The distal esophagus and stomach including retroflexed views appeared normal. There was some redundant tissue in the fundus around the GE junction that has the appearance of a fundoplication. The stomach was otherwise normal. The pylorus and first and second portions of the duodenum were normal. The stomach was fully insufflated, and transillumination was performed in the left upper quadrant below the left ribs. The appropriate site was identified by palpation and transillumination. The patient received 2 g of Ancef prior to the procedure. The skin was sterilized with chlorhexidine. The skin was anesthetized with 5 mL of 1% lidocaine. A small skin incision was performed with a scalpel. The catheter was placed through the incision into the stomach under direct visualization easily in one attempt. The wire was placed through the catheter and grasped with snare and pulled out through the patient's mouth. The 20-Welsh gastrostomy tube was then placed by the pull-through technique. There was a rubber internal bumper. The external bumper was placed at 2.5 cm. Triple antibiotic ointment was applied and the site was dressed. IMPRESSION: 1. Three ulcers in the proximal esophagus measuring 8 mm to 1.5 cm. These ulcers are located above an area of external compression and likely the results of either pill esophagitis or just mechanical ischemia from retained food above the area of compression. These ulcers have a benign appearance. 2. Otherwise, normal esophagogastroduodenoscopy. 3. 20-Welsh gastrostomy tube was placed by the pull-through technique. RECOMMENDATIONS: 1. Proton pump inhibitor. 2. Start feeds in 12 hours. Job ID: [id number]
[2019-06-23 06:12] LABS: #Lymphocytes 0.7 thou/uL (1.20-3.40); #Neutrophils 9.4 thou/uL (1.40-6.50); %Basophils 0.1 % (0.0-1.0); %Eosinophils 0.3 % (0.0-10.0); %Lymphocytes 6.1 % (21.0-51.0); %Monocytes 8.7 % (0.0-10.0); %Neutrophils 84.8 % (42.0-75.0); Hemoglobin 7.9 g/dL (14.0-18.0); Mean Corpuscular HGB CONC 30.6 g/dL (32.0-36.0); Mean Corpuscular Hemoglobin 25.2 pg (27.0-31.0); Mean Corpuscular Volume 82.5 fL (78.0-98.0); Mean Platelet Volume 8.1 fL (7.4-10.4); Platelet Count 275 thou/uL (130-400); RBC Distribution Width 17.7 % (11.5-14.5); Red Blood Cell (RBC) Count 3.11 mill/uL (4.70-6.10); White Blood Cell (WBC) Count 11.1 thou/uL (4.8-10.8)
[2019-06-23 06:35] LABS: Anion Gap 15 mmol/L (10-20); BUN (Urea Nitrogen) 8 mg/dL (8.4-25.7); Calc. Creatinine Clearance 68 mL/min (70-130); Calcium 8.8 mg/dL (7.8-10.44); Carbon Dioxide 18 mmol/L (23-31); Chloride 114 mmol/L (98-107); Estimated GFR-MDRD Greater than 90; Glucose 119 mg/dL (83-110); Magnesium 1.6 mg/dL (1.6-2.6); Phosphorus 3.1 mg/dL (2.3-4.7); Potassium 3.7 mmol/L (3.5-5.1); Sodium 143 mmol/L (136-145)
[2019-06-23] MEDS ORDERED: PROVENTIL INHALER 6.7 G (200 INHALATIONS) INH PRN (08:27)
[2019-06-23] MEDS: Folic Acid 1 MG TAB PER TUBE SCH (08:54)
[2019-06-23] MEDS: Aspirin Chewable 81 MG TAB PER TUBE SCH (08:55)
[2019-06-23] MEDS: Atorvastatin Calcium 10 MG TAB PER TUBE SCH (08:55)
[2019-06-23] MEDS: Vit A,C & E/Lutein/Minerals Tablet PER TUBE SCH (08:55)
[2019-06-23] MEDS: Sodium Chloride 0.9% 1,000 ML IV SCH ×2 (08:56→19:31)
[2019-06-23] MEDS ORDERED: Docusate 100 MG CAP PER TUBE SCH (09:45)
[2019-06-23] MEDS ORDERED: Clopidogrel Bisulfate 75 MG TAB ONE (17:35)
[2019-06-23] MEDS: Mometasone/Formoterol 120 PUFF INHALER INH SCH (18:14)
[2019-06-23] MEDS ORDERED: Cipro 250 MG TAB PER TUBE SCH (20:00)
--- NOTE | 2019-06-23 20:04 | PDOC.HOSPP ---
- Subjective Encounter Date: 06/23/19 Encounter Time: 10:40 Subjective: Pt seen for followup re: decreased oral intake. Feels better. - Objective Vital Signs & Weight: Vital Signs (12 hours) Temp Pulse Resp BP Pulse Ox 06/23/19 15:56 97.5 F L 88 17 109/70 100 06/23/19 12:00 97.5 F L 99 17 118/63 99 Weight Admit Weight 130 lb 4.8 oz Weight 130 lb 4.8 oz I&O: 06/22/19 06/23/19 06/24/19 06:59 06:59 06:59 Intake Total 800 Output Total 1450 Balance -650 Result Diagrams: 06/23/19 05:41 06/23/19 05:41 Additional Labs: Accuchecks 06/23/19 06/23/19 06/23/19 15:55 12:24 05:44 POC Glucose 144 H 151 H 126 H 06/22/19 20:07 POC Glucose 92 Labs and MARs reviewed by hi Hospitalist ROS - Review of Systems Cardiovascular: denies: chest pain, palpitations, orthopnea, paroxysmal noc. dyspnea, edema, light headedness Gastrointestinal: denies: nausea, vomiting, abdominal pain, diarrhea, constipation, melena, hematochezia - Medication Medications: Active Medications Generic Name Dose Route Start Last Admin Trade Name Willianq PRN Reason Stop Dose Admin Aspirin 81 mg 06/23/19 09:00 06/23/19 08:55 Aspirin Chewable PER TUBE 81 mg DAILY CELESTE Administration Atorvastatin Calcium 10 mg 06/23/19 09:00 06/23/19 08:55 Lipitor PER TUBE 10 mg DAILY CELESTE Administration Folic Acid 0.5 mg 06/23/19 09:00 06/23/19 08:54 Folvite PER TUBE 0.5 mg DAILY CELESTE Administration Sodium Chloride 1,000 mls @ 100 mls/hr 06/21/19 20:00 06/23/19 19:31 Normal Saline 0.9% IV Not Given .Q10H CELESTE Mometasone Furoate/Formoterol Fumar 2 puff 06/23/19 18:30 06/23/19 18:14 Dulera 200 Mcg/5 Mcg Inhaler INH 2 puff BID-RT CELESTE Administration Multivitamins/Minerals 1 tab 06/23/19 09:00 06/23/19 08:55 Ocuvite With Lutein PER TUBE 1 tab DAILY CELESTE Administration Sodium Chloride 10 ml 06/22/19 09:00 06/23/19 19:31 Flush - Normal Saline IVF Not Given Q12HR CELESTE - Exam General Appearance: NAD Eye: anicteric sclera ENT: moist mucosa Neck: supple Heart: RRR, no rubs Respiratory: CTAB Gastrointestinal: soft, non-tender Musculoskeletal: diffuse muscle atrophy Psychiatric: normal affect, normal behavior Hosp A/P (1) Decreased oral intake Code(s): R63.8 - OTHER SYMPTOMS AND SIGNS CONCERNING FOOD AND FLUID INTAKE Status: Acute (2) Dehydration Code(s): E86.0 - DEHYDRATION Status: Acute (3) Severe protein-calorie malnutrition Code(s): E43 - UNSPECIFIED SEVERE PROTEIN-CALORIE MALNUTRITION Status: Chronic (4) 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 Pt has a h/o urinary retention, relatively new. Consult urology. Change oral meds to per tube. If BP is high, consider short-acting cardizem (Cardia XT cannot be given by PEG tube).
--- NOTE | 2019-06-23 20:16 | PRG ---
DATE OF SERVICE: 06/23/2019 SUBJECTIVE: Mr. Pickering is tolerating his tube feeds well. He has no abdominal pain. OBJECTIVE: VITAL SIGNS: Temperature is 97.5, pulse 88, blood pressure 109/70. GENERAL: He is in no acute distress alert and oriented. LUNGS: Clear to auscultation bilaterally. ABDOMEN: Soft, nontender, nondistended. The PEG site is clear and healthy-appearing. The external bumper is now at 4 cm. HEART: Regular rate and rhythm. LABORATORY DATA: White blood cell count 11.1, hemoglobin 7.9. IMPRESSION: 1. Esophageal dysphagia secondary to extrinsic compression in the mid esophagus. This has also created ulcerations of the esophagus above the external compression. These ulcerations are likely from pill esophagitis and mechanical irritation from food and pills getting stuck in this area of the esophagus. Hopefully, his dysphagia will improve further as these ulcerations heal up. 2. Lung cancer with mediastinal adenopathy. 3. Status post percutaneous endoscopic gastrostomy tube placement yesterday. RECOMMENDATIONS: 1. Continue tube feeds. 2. Follow up with Oncology. 3. I will sign off. Please call if GI can be of assistance. 4. Proton pump inhibitor daily. Job ID: [id number]
[2019-06-23] MEDS: Tamsulosin HCl 0.4 MG CAP PO SCH (21:00)
[2019-06-23] MEDS: Mirtazapine 30 MG TAB PER TUBE SCH (21:00)
[2019-06-23] MEDS: Ciprofloxacin 500 MG TAB PER TUBE SCH (21:00)
[2019-06-23] MEDS: Docusate 100 MG CAP PER TUBE SCH (21:00)
--- NOTE | 2019-06-24 00:38 | CON ---
DATE OF CONSULTATION: 06/23/2019 REASON FOR CONSULTATION: Urinary retention. HISTORY OF PRESENT ILLNESS: Mr. Ron Beverly is a pleasant 74-year-old male, patient of Dr. Matthew Trent in Urology, who presented to the hospital on this admission with inability to swallow secondary to metastatic lung cancer. The patient has been having intermittent issues with voiding at home. He was originally well managed on Flomax under Dr. Trent's care. The patient was seen in the [facility] and a Booth catheter placed prior to Thanksgiving. This was later removed before Thanksgiving and the patient subsequently went immediately into urinary retention with frequent small volume voids. He did ultimately get admitted here on 06/21/2019 and the Booth catheter that was replaced in the emergency department at the [facility] was left in place. The patient is interested in having a voiding trial for his catheter, but has not been on suitable medical therapy for that. Due to the patient's obstructed esophagus, he underwent PEG tube placement, he now has that in place. He was started back on tube feeds for both nutrition and fluid support. His indwelling Booth catheter remains in place and is draining clear colored urine. PAST MEDICAL HISTORY: 1. Prostate hypertrophy with obstruction, previously on Flomax. 2. Diabetes mellitus, type 2. 3. Dyslipidemia. 4. Hypertension. 5. Metastatic colon cancer. PAST SURGICAL HISTORY: Patient underwent a right lobectomy. SOCIAL HISTORY: The patient is retired and is not a current user of tobacco or alcohol. FAMILY MEDICAL HISTORY: Positive for diabetes mellitus and heart disease. ALLERGIES: THE PATIENT HAS REPORTED ALLERGIES TO CODEINE AND TRAMADOL. OUTPATIENT MEDICATION LIST: Included the followin. Metformin 500 mg 3 times daily. 2. Tamsulosin 0.8 mg at bedtime. 3. Losartan 50 mg p.o. daily. 4. Aspirin 81 mg p.o. daily. 5. Atorvastatin 10 mg p.o. at bedtime. 6. Cardia XT 120 mg daily. 7. Mirtazapine 30 mg p.o. at bedtime. 8. PreserVision 1 tablet two times daily. 9. Daily multivitamin. 10. Advair Diskus one puff twice daily. 11. Tramadol 50-100 mg every 6 hours as needed. 12. [place] 10/325 as needed for pain. PHYSICAL EXAMINATION: VITAL SIGNS: Current temperature is 97.8, pulse 88, respirations 17, O2 saturation on room air is 100%, current blood pressure is 109/70. GENERAL: This is a pleasant awake, alert, male, in no apparent distress, who looks relatively cachectic. LUNGS: Clear to auscultation bilaterally with COPD type changes. CHEST: Chest wall is relatively thin. CARDIAC: Regular rate and rhythm. ABDOMEN: Soft and nontender except in the immediate area of PEG tube site. The PEG tube remains in place. A tube feed is running at time of this evaluation. : A Booth catheter remains in place and is draining straw-colored urine. This was on tension due to a StatLock type device, which was removed during the course of exam. Testes are benign bilaterally. Digital rectal examination finds prostate gland, which palpates to about 35 g. It is not tender on examination. Rectal tone is fair. EXTREMITIES: The patient has sequential compression devices in place bilaterally in the lower extremities. Able to move all 4 extremities against gravity. LABORATORY STUDIES: A urinalysis obtained on 06/21/2019 showed urine gravity of 1.046 indicating high degree of dehydration on admission, 30 mg/dL of protein, 10 mg/dL of ketones, blood was 3+ with greater than 50 red cells seen per high-power field and 4-6 white cells seen per high-power field. Serum chemistries today show chloride of 114, carbon dioxide 18, blood urea nitrogen of 8, estimated glomerular filtration rate greater than 90. Serum glucose was 119. ASSESSMENT AND PLAN: 1. Urinary retention. The patient has been off his medications for benign prostatic hypertrophy and should be restarted back on them. Per tube, the tamsulosin can be administered by opening the capsule and administering per the tube. Cipro will probably have to be crushed to appropriate degree, Avodart and finasteride due to the teratogenic effects potentially on nursing staff, I am not recommending these medications to be crushed or applied per tube and this medication will have to wait until patient has established tract that is appropriate for administration of medicines of that type. 2. Retention voiding trial plans. The patient has not been adequately covered on appropriate medications to allow a voiding trial to did occur successfully since he has had failed voiding trials as an outpatient. We recommended the medical therapy be continued as an outpatient and the patient followup in my office for a voiding trial. 3. Male health issues. Digital rectal examination not suggestive of prostate cancer. Peostate-specific antigen is not own. Over 70 minutes of initial consultation, evaluation and assessment time was spent on assessment of this patient today. Job ID: [id number]
[2019-06-24] MEDS ORDERED: Ciprofloxacin 500 MG TAB ONE (04:47)
[2019-06-24] MEDS: Ciprofloxacin 500 MG TAB PER TUBE SCH ×2 (05:00→22:12)
[2019-06-24] MEDS: Mometasone/Formoterol 120 PUFF INHALER INH SCH ×2 (08:10→20:02)
[2019-06-24] MEDS: Atorvastatin Calcium 10 MG TAB PER TUBE SCH (08:53)
[2019-06-24] MEDS: Docusate 100 MG CAP PER TUBE SCH ×2 (08:53→22:12)
[2019-06-24] MEDS: Sodium Chloride 0.9% 1,000 ML IV SCH ×2 (08:53→17:23)
[2019-06-24] MEDS: Folic Acid 1 MG TAB PER TUBE SCH (08:53)
[2019-06-24] MEDS: Aspirin Chewable 81 MG TAB PER TUBE SCH (08:53)
[2019-06-24] MEDS: Vit A,C & E/Lutein/Minerals Tablet PER TUBE SCH (08:53)
[2019-06-24 13:03] LABS: #Lymphocytes 0.7 thou/uL (1.20-3.40); #Neutrophils 6.5 thou/uL (1.40-6.50); %Basophils 0.1 % (0.0-1.0); %Eosinophils 0.5 % (0.0-10.0); %Monocytes 12.6 % (0.0-10.0); %Neutrophils 78.8 % (42.0-75.0); Hemoglobin 8.3 g/dL (14.0-18.0); Mean Corpuscular Volume 83.8 fL (78.0-98.0); Mean Platelet Volume 8.1 fL (7.4-10.4); Platelet Count 310 thou/uL (130-400); RBC Distribution Width 18.1 % (11.5-14.5); Red Blood Cell (RBC) Count 3.19 mill/uL (4.70-6.10); White Blood Cell (WBC) Count 8.3 thou/uL (4.8-10.8)
[2019-06-24 16:32] LABS: Anion Gap 15 mmol/L (10-20); BUN (Urea Nitrogen) 7 mg/dL (8.4-25.7); Calc. Creatinine Clearance 73 mL/min (70-130); Calcium 8.7 mg/dL (7.8-10.44); Carbon Dioxide 18 mmol/L (23-31); Chloride 114 mmol/L (98-107); Estimated GFR-MDRD Greater than 90; Magnesium 1.5 mg/dL (1.6-2.6); Potassium 3.7 mmol/L (3.5-5.1); Sodium 143 mmol/L (136-145)
[2019-06-24 16:38] LABS: Glucose 165 mg/dL (83-110)
[2019-06-24 16:40] LABS: Phosphorus 1.8 mg/dL (2.3-4.7)
[2019-06-24] MEDS ORDERED: Sodium Phosphate 30 MMOL in Sodium Chloride 0.9% 250 ML 250 ML IVPB SCH (16:45)
--- NOTE | 2019-06-24 18:40 | PDOC.HOSPP ---
- Subjective Encounter Date: 06/24/19 Encounter Time: 10:40 Subjective: Pt seen for followup re: poor oral intake. States he feels better. - Objective Vital Signs & Weight: Vital Signs (12 hours) Temp Pulse Resp BP Pulse Ox 06/24/19 16:03 97.5 F L 92 18 142/76 H 99 Weight Admit Weight 130 lb 4.8 oz Weight 130 lb 4.8 oz I&O: 06/23/19 06/24/19 06/25/19 06:59 06:59 06:59 Intake Total 800 Output Total 1450 1000 Balance -650 -1000 Result Diagrams: 06/24/19 07:25 06/24/19 07:25 Additional Labs: Accuchecks 06/24/19 06/24/19 06/24/19 16:08 11:32 05:21 POC Glucose 155 H 134 H 146 H 06/23/19 20:43 POC Glucose 173 H Labs and MARs reviewed by mn Hospitalist ROS - Review of Systems Constitutional: denies: fever, chills, sweats, weakness, malaise Cardiovascular: denies: chest pain, palpitations, orthopnea, paroxysmal noc. dyspnea, edema, light headedness Neurological: denies: weakness, numbness, incoordination, change in speech, confusion, seizures - Medication Medications: Active Medications Generic Name Dose Route Start Last Admin Trade Name Willianq PRN Reason Stop Dose Admin Aspirin 81 mg 06/23/19 09:00 06/24/19 08:53 Aspirin Chewable PER TUBE 81 mg DAILY CELESTE Administration Atorvastatin Calcium 10 mg 06/23/19 09:00 06/24/19 08:53 Lipitor PER TUBE 10 mg DAILY CELESTE Administration Ciprofloxacin 500 mg 06/23/19 20:00 06/24/19 05:00 Cipro PER TUBE 500 mg BID@0600,2000 CELESTE Administration Docusate Sodium 100 mg 06/23/19 21:00 06/24/19 08:53 Colace PER TUBE 100 mg BID CELESTE Administration Folic Acid 0.5 mg 06/23/19 09:00 06/24/19 08:53 Folvite PER TUBE 0.5 mg DAILY CELESTE Administration Sodium Chloride 1,000 mls @ 100 mls/hr 06/21/19 20:00 06/24/19 17:23 Normal Saline 0.9% IV 1,000 mls .Q10H CELESTE Administration Sodium Phosphate 30 mmol/ 260 mls @ 43.333 mls/hr 06/24/19 16:45 06/24/19 17: 20 Sodium Chloride IVPB 06/24/19 18:45 260 mls NOW CELESTE Administration Mirtazapine 30 mg 06/23/19 21:00 06/23/19 21:00 Remeron PER TUBE 30 mg HS CELESTE Administration Mometasone Furoate/Formoterol Fumar 2 puff 06/23/19 18:30 06/24/19 08:10 Dulera 200 Mcg/5 Mcg Inhaler INH 2 puff BID-RT CELESTE Administration Multivitamins/Minerals 1 tab 06/23/19 09:00 06/24/19 08:53 Ocuvite With Lutein PER TUBE 1 tab DAILY CELESTE Administration Sodium Chloride 10 ml 06/22/19 09:00 06/24/19 08:53 Flush - Normal Saline IVF 10 ml Q12HR CELESTE Administration Tamsulosin HCl 0.4 mg 06/23/19 21:00 06/23/19 21:00 Flomax PO 0.4 mg HS CELESTE Administration - Exam General Appearance: NAD Eye: anicteric sclera ENT: moist mucosa Neck: supple Heart: RRR Respiratory: CTAB Gastrointestinal: soft, non-tender Gastrointestinal - other findings: PEG tube Psychiatric: normal affect, normal behavior Hosp A/P (1) Decreased oral intake Code(s): R63.8 - OTHER SYMPTOMS AND SIGNS CONCERNING FOOD AND FLUID INTAKE Status: Acute (2) Dehydration Code(s): E86.0 - DEHYDRATION Status: Acute (3) Severe protein-calorie malnutrition Code(s): E43 - UNSPECIFIED SEVERE PROTEIN-CALORIE MALNUTRITION Status: Chronic (4) 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 Changed oral meds to per tube. HTN controlled. Discussed with . She would like to administer tibe feeds at home (not through HH).
[2019-06-24] MEDS: Acetaminophen 325 MG TAB PER TUBE PRN (22:12)
[2019-06-24] MEDS: Tamsulosin HCl 0.4 MG CAP PO SCH (22:12)
[2019-06-24] MEDS: Mirtazapine 30 MG TAB PER TUBE SCH (22:13)
[2019-06-25] MEDS: Ciprofloxacin 500 MG TAB PER TUBE SCH ×2 (05:41→21:10)
[2019-06-25 06:48] LABS: Magnesium 1.4 mg/dL (1.6-2.6); Phosphorus 3.2 mg/dL (2.3-4.7)
[2019-06-25] MEDS: Mometasone/Formoterol 120 PUFF INHALER INH SCH ×2 (07:53→20:07)
[2019-06-25] MEDS ORDERED: Magnesium 2 GM/50 ML 2 GM in Premix Bag 1 BAG IVPB SCH (08:00)
[2019-06-25] MEDS: Vit A,C & E/Lutein/Minerals Tablet PER TUBE SCH (09:59)
[2019-06-25] MEDS: Atorvastatin Calcium 10 MG TAB PER TUBE SCH (09:59)
[2019-06-25] MEDS: Aspirin Chewable 81 MG TAB PER TUBE SCH (09:59)
[2019-06-25] MEDS: Folic Acid 1 MG TAB PER TUBE SCH (10:00)
[2019-06-25] MEDS: Sodium Chloride 0.9% 1,000 ML IV SCH ×3 (10:01→21:10)
[2019-06-25] MEDS: Docusate 100 MG CAP PER TUBE SCH (10:01)
--- NOTE | 2019-06-25 15:36 | PDOC.HOSPP ---
- Subjective Encounter Date: 06/25/19 Encounter Time: 09:40 Subjective: Pt seen for followup re: poor oral intake.. States he feels much better. No complaints today. - Objective Vital Signs & Weight: Vital Signs (12 hours) Temp Pulse Resp BP Pulse Ox 06/25/19 07:28 97.7 F 90 16 114/75 97 Weight Admit Weight 130 lb 4.8 oz Weight 130 lb 4.8 oz I&O: 06/24/19 06/25/19 06/26/19 06:59 06:59 06:59 Intake Total 30 2100 Output Total 1000 1250 Balance -970 850 Result Diagrams: 06/24/19 07:25 06/24/19 07:25 Additional Labs: Accuchecks 06/25/19 06/25/19 06/24/19 12:02 04:58 20:15 POC Glucose 141 H 136 H 140 H 06/24/19 16:08 POC Glucose 155 H Labs and MARs reviewed by wv Hospitalist ROS - Review of Systems Gastrointestinal: denies: nausea, vomiting, abdominal pain, diarrhea, constipation, melena, hematochezia Genitourinary: denies: dysuria, frequency, incontinence, hematuria, retention - Medication Medications: Active Medications Generic Name Dose Route Start Last Admin Trade Name Freq PRN Reason Stop Dose Admin Acetaminophen 650 mg 06/23/19 08:27 06/24/19 22:12 Tylenol PER TUBE 650 mg Q4H PRN Administration Headache Aspirin 81 mg 06/23/19 09:00 06/25/19 09:59 Aspirin Chewable PER TUBE 81 mg DAILY CELESTE Administration Atorvastatin Calcium 10 mg 06/23/19 09:00 06/25/19 09:59 Lipitor PER TUBE 10 mg DAILY CELESTE Administration Ciprofloxacin 500 mg 06/23/19 20:00 06/25/19 05:41 Cipro PER TUBE 500 mg BID@0600,2000 CELESTE Administration Docusate Sodium 100 mg 06/23/19 21:00 06/25/19 10:01 Colace PER TUBE 100 mg BID CELESTE Administration Folic Acid 0.5 mg 06/23/19 09:00 06/25/19 10:00 Folvite PER TUBE 0.5 mg DAILY CELESTE Administration Sodium Chloride 1,000 mls @ 100 mls/hr 06/21/19 20:00 06/25/19 14:50 Normal Saline 0.9% IV Not Given .Q10H CELESTE Mirtazapine 30 mg 06/23/19 21:00 06/24/19 22:13 Remeron PER TUBE 30 mg HS CELESTE Administration Mometasone Furoate/Formoterol Fumar 2 puff 06/23/19 18:30 06/25/19 07:53 Dulera 200 Mcg/5 Mcg Inhaler INH 2 puff BID-RT CELESTE Administration Multivitamins/Minerals 1 tab 06/23/19 09:00 06/25/19 09:59 Ocuvite With Lutein PER TUBE 1 tab DAILY CELESTE Administration Sodium Chloride 10 ml 06/22/19 09:00 06/25/19 10:01 Flush - Normal Saline IVF Not Given Q12HR CELESTE Tamsulosin HCl 0.4 mg 06/23/19 21:00 06/24/19 22:12 Flomax PO 0.4 mg HS CELESTE Administration - Exam General Appearance: NAD Eye: anicteric sclera ENT: moist mucosa Neck: supple Heart: RRR Respiratory: CTAB, no rales Gastrointestinal: soft, normal bowel sounds Extremities: no clubbing Skin: normal turgor Neurological: cranial nerve grossly intact Musculoskeletal: no muscle wasting Psychiatric: normal affect, normal behavior Hosp A/P (1) Decreased oral intake Code(s): R63.8 - OTHER SYMPTOMS AND SIGNS CONCERNING FOOD AND FLUID INTAKE Status: Acute (2) Severe protein-calorie malnutrition Code(s): E43 - UNSPECIFIED SEVERE PROTEIN-CALORIE MALNUTRITION Status: Chronic (3) 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 HTN controlled. Discussed with . Likely home 24-48 h
--- NOTE | 2019-06-25 15:37 | CON ---
DATE OF CONSULTATION: REASON FOR CONSULT: Lung cancer. HISTORY OF PRESENT ILLNESS: Mr. 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 He has confluent right supraclavicular adenopathy, posterior tracheal adenopathy associated with right vocal cord paralysis. He has had progressive weight loss and dysphagia over the last several weeks. He presented to the emergency room for weakness and weight loss. He underwent a CT angio, which showed no pulmonary embolism but did show mediastinal shift to the right but was stable as per prior exam. Decision was made to put a feeding tube in. He was seen by Dr. Bernal. Endoscopy showed extrinsic compression in the mid esophagus. He had ulcerations above external compression. He had a percutaneous endoscopic gastrostomy tube placed. Tube feeds were started. He has been tolerating them well with no abdominal pain and actually has been feeling stronger over the past 24 hours. His next treatment was planned for Saturday. We were asked to see him regarding his chemo. PAST MEDICAL HISTORY: 1. Stage IV adenocarcinoma of the right upper lobe. 2. Diabetes. 3. Hypertension. 4. COPD. 5. Hyperlipidemia. 6. Benign prostatic hypertrophy. PAST SURGICAL HISTORY: 1. Laparoscopic Justino fundoplication. 2. Lung biopsy. 3. MediPort placement. ALLERGIES: HE HAS ALLERGY TO CODEINE. HOME MEDICATIONS: 1. Advair. 2. Aspirin. 3. Atorvastatin. 4. Gabapentin. 5. Hydroxyzine. 6. Losartan. 7. Megestrol. 8. Metformin. 9. [place]. 10. Flomax. 11. Folic acid. FAMILY HISTORY: Father had colon cancer. SOCIAL HISTORY: , has 4 children. Lives with his spouse. Former smoker. No alcohol or illicit drug use. REVIEW OF SYSTEMS: Positive for chronic cough. Otherwise, negative. PHYSICAL EXAMINATION: VITAL SIGNS: Temperature 97.7, pulse is 90, respiratory rate 16, blood pressure is 114/75, and he is 97% on room air. GENERAL: This is a well-developed, well-nourished male, in no acute distress. HEENT: Normocephalic, atraumatic. Pupils are equal and reactive to light. NECK: Supple. CARDIOVASCULAR: Regular rate and rhythm. LUNGS: He has decreased breath sounds anterior. ABDOMEN: Soft and nontender. He has a feeding tube in place. EXTREMITIES: No clubbing or cyanosis. SKIN: No rash. HEMATOLOGICAL: No petechiae or purpura. NEUROLOGIC: Nonfocal. PSYCH: He is alert and oriented and appropriate. PERTINENT LABS AND X-RAYS: Current WBCs are 8.3, hemoglobin 8.3, hematocrit 26.7, platelet count is 310,000, he has 78% neutrophils, 8% lymphocytes. Sodium is 143, potassium 3.7, chloride 114, CO2 is 18, BUN is 7, creatinine 0.76, calcium 8.7, phosphorus 3.2, magnesium 1.4, bilirubin 0.4, AST is 21, ALT is 16, alkaline phosphatase is 72, serum total protein is 7.6, albumin 3.6, and globulin 4.0. Radiology per HPI. ASSESSMENT: 1. Stage IV lung cancer. 2. Esophageal dysphagia secondary to external compression from cancer. 3. Status post percutaneous endoscopic gastrostomy tube placement. DISCUSSION: The patient is tolerating his tube feeds. Hope is that he will regain his strength over the next week. Plan to postpone his chemo treatment until a week after next. At which time, he will follow up with Dr. Deiv. One dose of chemo immunotherapy left, at which point, he is placed on Keytruda alone. His CT angio does show worsening of his nodules. However, the comparison was made to a CT scan that was done. Thank you for the consult. We will follow him in the outpatient setting. Job ID: [id number]
[2019-06-25] MEDS: Docusate Sodium 100 MG/10 ML UDCUP PER TUBE SCH (21:09)
[2019-06-25] MEDS: Acetaminophen 325 MG TAB PER TUBE PRN (21:09)
[2019-06-25] MEDS: Mirtazapine 30 MG TAB PER TUBE SCH (21:09)
[2019-06-25] MEDS: Tamsulosin HCl 0.4 MG CAP PO SCH (21:10)
[2019-06-26] MEDS: Ciprofloxacin 500 MG TAB PER TUBE SCH ×2 (06:02→20:46)
[2019-06-26 06:18] LABS: Magnesium 1.6 mg/dL (1.6-2.6); Phosphorus 2.3 mg/dL (2.3-4.7)
[2019-06-26] MEDS: Mometasone/Formoterol 120 PUFF INHALER INH SCH ×2 (07:13→19:00)
[2019-06-26] MEDS: Folic Acid 1 MG TAB PER TUBE SCH (08:45)
[2019-06-26] MEDS: Atorvastatin Calcium 10 MG TAB PER TUBE SCH (08:45)
[2019-06-26] MEDS: Vit A,C & E/Lutein/Minerals Tablet PER TUBE SCH (08:45)
[2019-06-26] MEDS: Aspirin Chewable 81 MG TAB PER TUBE SCH (08:46)
[2019-06-26] MEDS: Docusate Sodium 100 MG/10 ML UDCUP PER TUBE SCH ×2 (08:46→20:46)
[2019-06-26] MEDS: Sodium Chloride 0.9% 1,000 ML IV SCH ×2 (11:13→20:46)
--- NOTE | 2019-06-26 12:35 | PDOC.HOSPP ---
- Subjective Encounter Date: 06/26/19 Encounter Time: 12:33 Subjective: Pt seen for followup re: poor oral intake. States he feels better. - Objective Vital Signs & Weight: Vital Signs (12 hours) Temp Pulse Resp BP Pulse Ox 06/26/19 08:00 97.8 F 97 18 118/71 97 Weight Admit Weight 130 lb 4.8 oz Weight 130 lb 4.8 oz I&O: 06/25/19 06/26/19 06/27/19 06:59 06:59 06:59 Intake Total 30 5079 Output Total 1000 3350 Balance -970 1729 Result Diagrams: 06/24/19 07:25 06/24/19 07:25 Additional Labs: Accuchecks 06/26/19 06/26/19 06/26/19 10:31 08:37 05:58 POC Glucose 221 H 160 H 96 06/26/19 06/25/19 00:15 18:11 POC Glucose 112 H 130 H Labs and MARs reviewed by ne Hospitalist ROS - Review of Systems Genitourinary: denies: dysuria, frequency, incontinence, hematuria, retention Musculoskeletal: denies: neck pain, shoulder pain, arm pain, back pain, hand pain, leg pain, foot pain - Medication Medications: Active Medications Generic Name Dose Route Start Last Admin Trade Name Freq PRN Reason Stop Dose Admin Acetaminophen 650 mg 06/23/19 08:27 06/25/19 21:09 Tylenol PER TUBE 650 mg Q4H PRN Administration Headache Albuterol Sulfate 2 puff 06/23/19 08:27 06/26/19 11:06 Proventil Hfa INH 2 puff Q4H PRN Administration SOB &/or Wheezing Aspirin 81 mg 06/23/19 09:00 06/26/19 08:46 Aspirin Chewable PER TUBE 81 mg DAILY CELESTE Administration Atorvastatin Calcium 10 mg 06/23/19 09:00 06/26/19 08:45 Lipitor PER TUBE 10 mg DAILY CELESTE Administration Ciprofloxacin 500 mg 06/23/19 20:00 06/26/19 06:02 Cipro PER TUBE 500 mg BID@06,1999 CELESTE Administration Docusate Sodium 100 mg 06/25/19 21:00 06/26/19 08:46 Colace Liquid PER TUBE 100 mg BID CELESTE Administration Folic Acid 0.5 mg 06/23/19 09:00 06/26/19 08:45 Folvite PER TUBE 0.5 mg DAILY CELESTE Administration Sodium Chloride 1,000 mls @ 100 mls/hr 06/21/19 20:00 06/26/19 11:13 Normal Saline 0.9% IV 1,000 mls .Q10H CELESTE Administration Mirtazapine 30 mg 06/23/19 21:00 06/25/19 21:09 Remeron PER TUBE 30 mg HS CELESTE Administration Mometasone Furoate/Formoterol Fumar 2 puff 06/23/19 18:30 06/26/19 07:13 Dulera 200 Mcg/5 Mcg Inhaler INH 2 puff BID-RT CELESTE Administration Multivitamins/Minerals 1 tab 06/23/19 09:00 06/26/19 08:45 Ocuvite With Lutein PER TUBE 1 tab DAILY CELESTE Administration Sodium Chloride 10 ml 06/22/19 09:00 06/26/19 08:46 Flush - Normal Saline IVF Not Given Q12HR CELESTE Tamsulosin HCl 0.4 mg 06/23/19 21:00 06/25/19 21:10 Flomax PO 0.4 mg HS CELESTE Administration - Exam General Appearance: NAD, awake alert Eye: anicteric sclera ENT: moist mucosa Neck: supple, symmetric Heart: RRR Respiratory: CTAB Gastrointestinal: soft, non-tender Gastrointestinal - other findings: + PEG tube Extremities: no clubbing Psychiatric: normal affect Hosp A/P (1) Decreased oral intake Code(s): R63.8 - OTHER SYMPTOMS AND SIGNS CONCERNING FOOD AND FLUID INTAKE Status: Acute (2) Severe protein-calorie malnutrition Code(s): E43 - UNSPECIFIED SEVERE PROTEIN-CALORIE MALNUTRITION Status: Chronic (3) 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 Code(s): C34.10 - MALIGNANT NEOPLASM OF UPPER LOBE, UNSP BRONCHUS OR LUNG Status: Chronic (4) Urinary retention Code(s): R33.9 - RETENTION OF URINE, UNSPECIFIED Status: Chronic (5) Dehydration Code(s): E86.0 - DEHYDRATION Status: Resolved - Plan plan discussed w/ family, out of bed/ambulate Pt was on Jevity tube feeds but failed, with high blood sugars. Will need Glucerna tube feeds. HTN controlled. Discussed with . Likely home later today or tomorrow.
[2019-06-26] MEDS: Mirtazapine 30 MG TAB PER TUBE SCH (20:47)
[2019-06-26] MEDS: Tamsulosin HCl 0.4 MG CAP PO SCH (20:47)
[2019-06-26] MEDS: Acetaminophen 325 MG TAB PER TUBE PRN (20:50)
[2019-06-27] MEDS: Ciprofloxacin 500 MG TAB PER TUBE SCH (05:45)
[2019-06-27] MEDS: Sodium Chloride 0.9% 1,000 ML IV SCH (05:45)
[2019-06-27] MEDS: Mometasone/Formoterol 120 PUFF INHALER INH SCH (06:34)
[2019-06-27] MEDS: Docusate Sodium 100 MG/10 ML UDCUP PER TUBE SCH (08:43)
[2019-06-27] MEDS: Aspirin Chewable 81 MG TAB PER TUBE SCH (08:43)
[2019-06-27] MEDS: Vit A,C & E/Lutein/Minerals Tablet PER TUBE SCH (08:43)
[2019-06-27] MEDS: Atorvastatin Calcium 10 MG TAB PER TUBE SCH (08:43)
[2019-06-27] MEDS: Folic Acid 1 MG TAB PER TUBE SCH (08:44)
[2019-06-27 12:01] VITALS: BP 123/77; TEMP 97.8
--- NOTE | 2019-06-28 03:10 | DIS ---
DATE OF ADMISSION: 06/21/2019 DATE OF DISCHARGE: 06/27/2019 PRIMARY CARE PROVIDER: Dr. Adán Beavers. DISCHARGE DIAGNOSES: 1. Decreased oral intake. 2. Severe protein-calorie malnutrition. 3. Urinary retention. 4. History of lung cancer. 5. Dehydration. 6. Hypophosphatemia. 7. Hypomagnesemia. CONDITION OF PATIENT ON THE DAY OF DISCHARGE: Stable. I assessed Mr. Raheel Beverly on the day of discharge. He denies any chest pain or shortness of breath. Vital signs are stable. S1 and S2 are heard, regular. Lungs are clear to auscultation bilaterally. CONSULTATIONS DURING THIS HOSPITALIZATION: 1. Gastroenterology, Dr. Bernal. 2. Urology, Dr. Jesus hCristianson. 3. Oncology, Ms. Brooke Vines. POST-ACUTE CARE FOLLOWUP: The patient is advised to follow up with primary care provider in 3 days' time and with urology, Dr. Zaman in 10 days' time. DISCHARGE MEDICATIONS: 1. Advair Diskus 500/50 one puff 2 times a day. 2. Aspirin 81 mg per tube daily. 3. Lipitor 10 mg per tube daily. 4. Folic acid 0.5 mg per tube daily. 5. Metformin 500 mg per tube daily. 6. Remeron 30 mg per tube at bedtime as needed. 7. Protonix 40 mg per tube daily. 8. Flomax 0.4 mg per tube at bedtime. 9. Ocuvite with lutein one tablet per tube daily. 10. PreserVision soft gel one capsule per tube 2 times a day. 11. Proventil HFA p.r.n. 12. Tylenol p.r.n. HOSPITAL COURSE: Mr. Raheel Beverly is a pleasant 74-year-old gentleman who was admitted to [facility] on 06/21/2019, for poor oral intake secondary to esophageal dysphagia secondary to impingement of lung cancer on the esophagus with mediastinal lymph nodes. He was seen by Gastroenterology Service. He underwent EGD with PEG tube placement. He also had urinary retention. He was seen by Urology Service. He had Booth catheter placed. He has been started on tamsulosin. He was also seen by Oncology Service to plan his ongoing chemotherapy. Following PEG tube placement, he was started on tube feeds. He had a trial of Jevity tube feeds, but failed because of hyperglycemia. He was then switched to Glucerna. He is being discharged home on Glucerna 1.2 tube feeds. Many thanks for allowing me to participate in your patient's care. Please feel free to contact me with any questions or concerns. DISCHARGE DESTINATION: Home. DIET: Tube feeds with Glucerna. ACTIVITY: As tolerated. TIME SPENT: Total amount of time spent coordinating this discharge: 31 minutes. Job ID: [id number]
== END 2019-06-27 12:57 | disposition home or self-care (01) | DRG 180 ==
LOC: ERS 15:38 → T4-B 21:15
PROVIDERS: ADMIT Internal Medicine; ATTEND Internal Medicine
PROC: 0DH63UZ Insertion of Feeding Device into Stomach, Percutaneous Approach (ICD-10-PCS; principal; 2019-06-22)
DX: C34.10 Malignant neoplasm of upper lobe, unspecified bronchus or lung (principal); E43 Unspecified severe protein-calorie malnutrition; C78.89 Secondary malignant neoplasm of other digestive organs; C34.90 Malignant neoplasm of unspecified part of unspecified bronchus or lung; C77.9 Secondary and unspecified malignant neoplasm of lymph node, unspecified; R33.9 Retention of urine, unspecified; E86.0 Dehydration; E83.39 Other disorders of phosphorus metabolism; E11.9 Type 2 diabetes mellitus without complications; E78.5 Hyperlipidemia, unspecified; E83.42 Hypomagnesemia; I10 Essential (primary) hypertension; D64.9 Anemia, unspecified; N40.1 Benign prostatic hyperplasia with lower urinary tract symptoms; E78.00 Pure hypercholesterolemia, unspecified; R13.10 Dysphagia, unspecified; Z88.8 Allergy status to other drugs, medicaments and biological substances; Z68.20 Body mass index [BMI] 20.0-20.9, adult
CPT/HCPCS: 36415; 36416; 71275; 80048; 80053; 81003; 81015; 83605; 83690; 83735; 83880; 84100; 84484; 85025; 93005; 96360; J0690; J2001; J2270; J2704; J3475; J7050; Q9967

== ENCOUNTER 2019-07-23 09:05 | Outpatient (CLI) | payer MEDICARE ==
--- NOTE | 2019-07-23 13:50 | PET ---
PET CT: HISTORY: A 74-year-old male with lung cancer. Malignant neoplasm with overlying sites of right bronchus and l sruthi. The patient's last chemotherapy was in 07/07/2019. Exam was requested to evaluate for subseque nt therapy. TECHNIQUE: PET scan with CT attenuation correction was performed from the base of the brain through the proximal thighs following the intravenous administration of 10.4 mCi [id number] in the right ante cubital fossa. COMPARISON: PET CT dated 04/02/2019. FINDINGS: There is continued hypermetabolic activity in the confluent right supraclavicular lymphadenopathy wit h increase in size from the previous exam measuring approximately 4 cm on the current study and a cur rent SUV of 9 (previously 8.7). The hypermetabolic 2.2 cm left upper lobe lung nodule has an SUV of 8.4 (previously 4.9). A new hype rmetabolic 7 mm peripheral nodule in the left upper lobe inferior to the previously described nodule has an SUV of 2.5. There is continued focally increased uptake posterior to the right main bronchus with an SUV of 6.5 ( previously 7.4). There is a new hypermetabolic right paratracheal lymph node with an SUV of 4.4. There is continued h ypermetabolic activity in the subcarinal lymph nodes with an SUV of 8.8 (previously 5.9). No hypermetabolic liver, adrenal, or skeletal lesions are seen. There is physiologic activity in the GI and tracts and the visualized portions of the brain. The CT scan used for attenuation correction demonstrates no evidence of pleural effusions or ascites. IMPRESSION: Mixed response to therapy since 04/02/2019. POS: JOSE
== END 2019-07-23 09:06 | disposition home or self-care (01) ==
LOC: PET 09:05
PROVIDERS: ATTEND Internal Medicine Hematology & Oncology
DX: C34.90 Malignant neoplasm of unspecified part of unspecified bronchus or lung (principal)
CPT/HCPCS: 78815; A9552

== ENCOUNTER 2019-08-31 22:18 | Inpatient (IN) | payer MEDICARE, OTHER ==
[2019-08-31] MEDS ORDERED: Cefepime 2 GM VIAL ONE (22:41)
[2019-08-31 22:48] LABS: #Basophils 0.1 thou/uL (0.0-0.2); #Eosinphils 0.1 thou/uL (0.0-0.7); #Lymphocytes 0.7 thou/uL (1.20-3.40); #Monocytes 1.4 thou/uL (0.11-0.59); #Neutrophils 12.6 thou/uL (1.40-6.50); %Basophils 0.6 % (0.0-1.0); %Eosinophils 0.4 % (0.0-10.0); %Lymphocytes 4.5 % (21.0-51.0); %Monocytes 9.5 % (0.0-10.0); Mean Corpuscular HGB CONC 31.8 g/dL (32.0-36.0); Mean Corpuscular Hemoglobin 25.7 pg (27.0-31.0); Mean Corpuscular Volume 80.9 fL (78.0-98.0); Mean Platelet Volume 7.5 fL (7.4-10.4); Platelet Count 464 thou/uL (130-400); RBC Distribution Width 17.5 % (11.5-14.5); Red Blood Cell (RBC) Count 3.51 mill/uL (4.70-6.10); White Blood Cell (WBC) Count 14.9 thou/uL (4.8-10.8)
[2019-08-31 23:12] LABS: ALT (SGPT) 7 U/L (8-55); AST (SGOT) 14 U/L (5-34); Albumin 3.1 g/dL (3.4-4.8); Alkaline Phosphatase 69 U/L (40-110); Anion Gap 13 mmol/L (10-20); BUN (Urea Nitrogen) 13 mg/dL (8.4-25.7); Bilirubin, Total 0.2 mg/dL (0.2-1.2); Calc. Creatinine Clearance 0 mL/min (70-130); Calcium 9.3 mg/dL (7.8-10.44); Carbon Dioxide 23 mmol/L (23-31); Chloride 99 mmol/L (98-107); Estimated GFR-MDRD Greater than 90; Globulin 4.2 g/dL (2.4-3.5); Glucose 147 mg/dL (83-110); Potassium 4.4 mmol/L (3.5-5.1); Protein, Total 7.3 g/dL (5.8-8.1); Sodium 131 mmol/L (136-145)
--- NOTE | 2019-08-31 23:23 | RAD ---
Chest AP view INDICATION: History of cough COMPARISON: PET/CT dated July 23, 2019 FINDINGS: Lungs:Pleural parenchymal density and scarring overlying the right upper lobe is stable. Pulmonary no dules of the left upper lobe are stable. Cardiac silhouette:The cardiomediastinal silhouette appears within normal limits. Pulmonary vasculature:Normal Pleural spaces:No pleural effusion or pneumothorax is demonstrated. Upper abdomen:No abnormality seen. Osseous structures: No acute osseous abnormality. Additional findings:Stable right chest wall port IMPRESSION: Stable pleural-parenchymal densities of the right upper lobe. Stable pulmonary nodules of the left upper lobe.
[2019-08-31 23:34] LABS: Bacteria/HPF None Seen HPF (None Seen); Bilirubin Negative (Negative); Blood, Urine Trace (Negative); Clarity Clear (Clear); Glucose, Urine (Dipstick) Normal (Negative); Leukocyte 75 Leu/uL (Negative); Nitrite Negative (Negative); Protein, Urine (Dipstick) 30 mg/dL (Neg-Trace); Squamous Epithelial None Seen HPF (0-3)
[2019-09-01] MEDS ORDERED: Acetaminophen 500 MG TAB ONE (02:44)
[2019-09-01 06:50] LABS: #Basophils 0.1 thou/uL (0.0-0.2); #Eosinphils 0.2 thou/uL (0.0-0.7); #Lymphocytes 1.2 thou/uL (1.20-3.40); #Monocytes 1.7 thou/uL (0.11-0.59); #Neutrophils 11.8 thou/uL (1.40-6.50); %Basophils 0.6 % (0.0-1.0); %Eosinophils 1.1 % (0.0-10.0); %Lymphocytes 7.7 % (21.0-51.0); %Monocytes 11.5 % (0.0-10.0); %Neutrophils 79.1 % (42.0-75.0); Hemoglobin 8.2 g/dL (14.0-18.0); Mean Corpuscular HGB CONC 31.3 g/dL (32.0-36.0); Mean Corpuscular Hemoglobin 25.7 pg (27.0-31.0); Mean Platelet Volume 7.4 fL (7.4-10.4); Platelet Count 458 thou/uL (130-400); RBC Distribution Width 17.7 % (11.5-14.5); Red Blood Cell (RBC) Count 3.21 mill/uL (4.70-6.10)
[2019-09-01 07:07] LABS: ALT (SGPT) Less than 7 U/L (8-55); AST (SGOT) 11 U/L (5-34); Albumin 2.9 g/dL (3.4-4.8); Alkaline Phosphatase 64 U/L (40-110); Anion Gap 13 mmol/L (10-20); BUN (Urea Nitrogen) 9 mg/dL (8.4-25.7); Bilirubin, Total 0.3 mg/dL (0.2-1.2); Calc. Creatinine Clearance 77 mL/min (70-130); Carbon Dioxide 21 mmol/L (23-31); Chloride 103 mmol/L (98-107); Estimated GFR-MDRD Greater than 90; Globulin 3.8 g/dL (2.4-3.5); Glucose 124 mg/dL (83-110); Potassium 3.9 mmol/L (3.5-5.1); Protein, Total 6.7 g/dL (5.8-8.1); Sodium 133 mmol/L (136-145)
[2019-09-01] MEDS ORDERED: PROVENTIL INHALER 6.7 G (200 INHALATIONS) INH PRN (09:17)
[2019-09-01] MEDS: Piperacillin/Tazobactam 3.375 GM in Sodium Chloride 0.9% 100 ML IVPB SCH ×2 (10:29→19:08)
[2019-09-01] MEDS: NS 0.9% w/ 20 MEQ KCL 1,000 ML/1,000 ML BAG IV SCH ×2 (10:30→20:52)
[2019-09-01] MEDS: Acetaminophen 500 MG TAB PER TUBE PRN ×2 (10:42→20:53)
[2019-09-01] MEDS: Mometasone/Formoterol 120 PUFF INHALER INH SCH (19:00)
[2019-09-01] MEDS: Atorvastatin Calcium 10 MG TAB PER TUBE SCH (20:53)
[2019-09-01] MEDS: Mirtazapine 30 MG TAB PER TUBE SCH (20:53)
[2019-09-01] MEDS ORDERED: Non-Formulary Item 1 EACH (Fluticasone/Salmeterol [Advair Diskus 500/50] 1 INH) IH SCH (21:00)
[2019-09-01] MEDS ORDERED: Vancomycin HCl 1 GM in Premix Bag 1 BAG IVPB SCH (21:00)
--- NOTE | 2019-09-01 22:01 | HP ---
CHIEF COMPLAINT: Altered mentation. HISTORY OF PRESENT ILLNESS: A 74-year-old male with history of lung cancer with mets to the lymph node, type 2 diabetes mellitus, BPH, hyperlipidemia and hypertension, hospitalized in June 2019 for decreased p.o. intake as well as dysphagia secondary to impingement of lung cancer on the esophagus at mediastinal lymph node, presenting yesterday evening with altered mentation. The patient's is providing full support at home. She noticed that he was not himself and has some urine incontinence. Also, his speech was quite slurred. She did not notice any facial droopiness. He did not have any fall and no fever or chills. He has some congestion and had dry cough for the last 3 to 4 days. Chest x-ray done did show parenchymal density in the right upper lobe and left upper lobe with pulmonary nodule which is also stable. [place] [id number], admitted with systemic inflammatory response syndrome, as well as metabolic encephalopathy. REVIEW OF SYSTEMS: Gathered from his . Pertinence addressed in the history of present illness. He did not have any nausea, vomiting, abdominal pain, constipation, or diarrhea. He was not complaining of headache or blurriness or any specific weakness or sensory impairment in his extremities. Complete review of system is not obtainable. ALLERGIES: HE IS ALLERGIC TO CODEINE, MORPHINE, AND TRAMADOL. MEDICATIONS: 1. Advair Diskus one puff twice a day. 2. Aspirin 81 mg daily. 3. Lipitor 10 mg daily. 4. Folic acid 0.5 mg via PEG tube. 5. Metformin 500 mg via PEG tube. 6. Protonix via PEG tube. 7. Proventil, as well as Tylenol p.r.n. PAST MEDICAL HISTORY: 1. Lung cancer, undergoing immunosuppressant treatment with Dr. Devi at [facility]. 2. History of urinary retention. 3. Overall poor p.o. intake and dysphagia, status post PEG tube placement. SOCIAL HISTORY: The patient does not smoke or drink alcohol. He lives with his . FAMILY HISTORY: Significant for father had a colon cancer. Mother had AL. PHYSICAL EXAMINATION: VITAL SIGNS: Temperature 97.9, pulse 97, blood pressure 94/55, saturating 100% with 2 L nasal cannula, oxygen by nasal cannula. GENERAL: The patient looks quite fragile, but alert and oriented. He is not toxic looking. HEENT: Pupils equal, round, and reactive to light. Anicteric. Mucous membranes moist. CARDIOVASCULAR: Regular rate and rhythm without murmurs, rubs, or gallops. LUNGS: Clear to auscultation bilaterally without wheezing, rales, or rhonchi. ABDOMEN: Soft, nontender, and nondistended. Good bowel sounds. EXTREMITIES: Without any pitting edema. No rash. PSYCHIATRIC: He has signs of depression. LABORATORY DATA: Current white count is 15,000. Hemoglobin 8.2, platelet 458. Sodium 133, potassium 3.9. LFTs in the normal range. Creatinine 0.66. Chest x -ray showed stable right upper lobe density, as well as left upper lobe nodule. IMPRESSION AND PLAN: This is a 74-year-old male with history of lung cancer, [facility], presenting with the following. 1. Systemic inflammatory response syndrome. 2. Metabolic encephalopathy that has resolved. 3. History of lung cancer with mets. 4. Failure to thrive. The patient probably has bronchitis with underlying history of lung dysfunction. Even though he is afebrile, clinical history suggestive of SIRS syndrome. Blood cultures have been done and we will follow with results. Meanwhile, continue broad-spectrum antibiotics. The patient did have a temp of 102 during initial evaluation in the ER. Dysphagia. The patient has a PEG tube. We will continue with home regimen. Speech Therapy is following with us. Code status has been addressed and it is DNR. Deep venous thrombosis prophylaxis with Lovenox. Rest of the management based on the clinical course. Job ID: [id number] MTDD
[2019-09-01] MEDS: Vancomycin HCl 1.25 GM in Sodium Chloride 0.9% 250 ML 250 ML IVPB SCH (22:39)
[2019-09-02] MEDS: Piperacillin/Tazobactam 3.375 GM in Sodium Chloride 0.9% 100 ML IVPB SCH ×3 (02:15→19:42)
[2019-09-02 04:03] LABS: #Basophils 0.1 thou/uL (0.0-0.2); #Eosinphils 0.4 thou/uL (0.0-0.7); #Monocytes 1.6 thou/uL (0.11-0.59); #Neutrophils 7.7 thou/uL (1.40-6.50); %Basophils 0.7 % (0.0-1.0); %Eosinophils 3.4 % (0.0-10.0); %Lymphocytes 8.9 % (21.0-51.0); %Monocytes 14.7 % (0.0-10.0); %Neutrophils 72.4 % (42.0-75.0); Hemoglobin 8.2 g/dL (14.0-18.0); Mean Corpuscular HGB CONC 31.3 g/dL (32.0-36.0); Mean Corpuscular Hemoglobin 25.6 pg (27.0-31.0); Mean Corpuscular Volume 81.8 fL (78.0-98.0); Mean Platelet Volume 7.6 fL (7.4-10.4); Platelet Count 452 thou/uL (130-400); RBC Distribution Width 17.5 % (11.5-14.5); Red Blood Cell (RBC) Count 3.19 mill/uL (4.70-6.10); White Blood Cell (WBC) Count 10.7 thou/uL (4.8-10.8)
[2019-09-02 04:32] LABS: ALT (SGPT) Less than 7 U/L (8-55); AST (SGOT) 9 U/L (5-34); Albumin 2.6 g/dL (3.4-4.8); Alkaline Phosphatase 62 U/L (40-110); Anion Gap 12 mmol/L (10-20); BUN (Urea Nitrogen) 7 mg/dL (8.4-25.7); Bilirubin, Total 0.3 mg/dL (0.2-1.2); Calc. Creatinine Clearance 78 mL/min (70-130); Carbon Dioxide 21 mmol/L (23-31); Chloride 104 mmol/L (98-107); Estimated GFR-MDRD Greater than 90; Globulin 3.8 g/dL (2.4-3.5); Glucose 116 mg/dL (83-110); Potassium 3.9 mmol/L (3.5-5.1); Protein, Total 6.4 g/dL (5.8-8.1); Sodium 133 mmol/L (136-145)
[2019-09-02] MEDS: Mometasone/Formoterol 120 PUFF INHALER INH SCH ×2 (08:04→19:21)
[2019-09-02] MEDS ORDERED: Polyethylene Glycol 3350 17 GM Packet PO PRN (08:30)
[2019-09-02] MEDS: Enoxaparin Sodium 30 MG/0.3 ML SYRINGE SC SCH (08:40)
[2019-09-02] MEDS: Aspirin Chewable 81 MG TAB PER TUBE SCH (08:42)
[2019-09-02] MEDS: Multivits W-Minerals Liquid 15 ML LIQ PER TUBE SCH (08:42)
[2019-09-02] MEDS ORDERED: MULTIVITAMIN PER TUBE SCH (09:00)
[2019-09-02] MEDS: Acetaminophen 500 MG TAB PER TUBE PRN (09:53)
--- NOTE | 2019-09-02 12:17 | CT ---
CT CHEST WITH CONTRAST CLINICAL INDICATION: Difficulty breathing. Patient with history of lung cancer. History of right lobectomy. COMPARISON: PET/CT exam on 07/23/2019 and CTA chest on 06/21/2019 FINDINGS: Aorta: Vascular calcifications are seen in the thoracic aorta as well as in the coronary arteries. Lungs: Postsurgical changes right hemithorax with evidence of partial lobectomy are noted. There are chronic pleural and parenchymal changes seen in the right upper lobe with persistent bullous appearing changes. Shift of mediastinal structures to the right are again present. There are multiple scattered bilateral pulmonary nodules majority which were seen on prior exams. Lar gest pulmonary nodule in the lateral aspect of the left upper lobe adjacent to the superior aspect major fissure is again seen but has enlarged compared to prior studies with low-density area centrall y suggesting necrosis. This nodule measures 2.7 cm x 2.1 cm with measurement on recent PET/CT exam of 2.4 cm x 1.7 cm. Just inferior to this region there has also been interval enlargement of a nodule measuring 1.2 cm in maximal dimensions with previous measurement of 0.9 cm. Additional pulmonary nodules are seen scattered in the left upper and left lower lobes measuring less than 1 cm, some of t hese nodules also appear mildly increased from recent PET/CT examination. There has been interval enlargement of a pulmonary nodule in the anterior aspect right midlung zone measuring 0.9 cm with pre vious measurement of 0.5 cm. There has been interval development of a tiny left pleural effusion. There are also mild groundglass and slight patchy reticulonodular densities left lung base. Stable mild parenchymal changes are seen at the posterior right lung base with mild pleural thickenin g noted. Prominent pleural thickening in the right upper lung zone is also again seen. Mediastinum: There is an enlarged necrotic lymph node centered in the right supraclavicular and infra clavicular location adjacent to the right lobe of the thyroid gland which has enlarged compared to recent PET/CT examination with previous measurement of 4.2 cm x 3.9 cm, and this now measures 4.8 cm x 4.7 cm. Soft tissue density is seen in the left hilar region most compatible with lymphadenopathy. Area of soft tissue density appears slightly increased compared to prior CTA exam. Small pericardial effusion is present which has mildly increased from recent exams. There is focal di stention of the esophagus with gas and fluid seen in portions of the esophagus. Portions of the mid esophagus demonstrate mild wall thickening. A right subclavian Mediport catheter remains in place with tip near the cavoatrial junction. There is a rounded calcified density measuring 11 mm in the region of the true vocal cord with mild m edial deviation of the right true vocal cord. This is present on prior PET/CT exam. Exact etiology is uncertain. This could potentially be iatrogenic. Clinical correlation is suggested. Thyroid gland: Grossly normal appearance. Osseous structures: Stable osseous changes of posterior right-sided ribs which may be postsurgical in origin. No new lytic or sclerotic osseous lesion is appreciated. Chest wall: Minimal subcutaneous edema. Upper abdomen: Multiple calcified splenic and hepatic granulomata. Postcholecystectomy changes are ag ain seen. Gastrostomy tube remains in place. IMPRESSION: 1. Bilateral pulmonary nodules several of which have increased in size compared to the prior exam wit h enlargement of a large necrotic right supraclavicular/infraclavicular lymph node as well as mild increase in left hilar lymphadenopathy. Findings are most compatible with progression in metastatic d isease. 2. Groundglass densities as well as minimal patchy parenchymal densities at the left lung base which could be related to infectious or inflammatory process. 3. Interval development tiny left pleural effusion. 4. Interval increase in pericardial effusion. 5. Additional findings as described above.
--- NOTE | 2019-09-02 15:56 | PDOC.HOSPP ---
- Subjective Encounter Date: 09/02/19 Encounter Time: 10:25 Subjective: pt is stable; concerned about his condition, flu negative, wbcs trended- could be infectiouus and/or inflammatory. she wantsus to repeta the cxr again. i have explained to the best of my knowledge also talk to ms Vines, who agreed to see him from oncology. will get CT chest, cr ok. - Objective Vital Signs & Weight: Vital Signs (12 hours) Temp Pulse Resp BP Pulse Ox 09/02/19 08:41 100 09/02/19 08:16 98.3 F 100 16 116/61 100 09/02/19 08:00 100 Weight Admit Weight 123 lb 14.4 oz Weight 123 lb 14.4 oz I&O: 09/01/19 09/02/19 09/03/19 06:59 06:59 06:59 Intake Total 1550 Balance 1550 Result Diagrams: 09/02/19 03:47 09/02/19 03:47 Hospitalist ROS - Medication Medications: Active Medications Generic Name Dose Route Start Last Admin Trade Name Freq PRN Reason Stop Dose Admin Acetaminophen 500 mg 09/01/19 05:46 09/02/19 09:53 Tylenol PER TUBE 500 mg Q6H PRN Administration Mild-Moderate Pain (1-5) Acetaminophen 1,000 mg 09/01/19 05:46 09/01/19 20:53 Tylenol PER TUBE 1,000 mg Q6H PRN Administration Moderate to Severe Pain (6-10) Aspirin 81 mg 09/02/19 09:00 09/02/19 08:42 Aspirin Chewable PER TUBE 81 mg DAILY CELESTE Administration Atorvastatin Calcium 10 mg 09/01/19 21:00 09/01/19 20:53 Lipitor PER TUBE 10 mg QPM CELESTE Administration Diltiazem HCl 120 mg 09/02/19 09:00 09/02/19 08:41 Cardizem Cd PO 120 mg QAM CELESTE Administration Enoxaparin Sodium 30 mg 09/02/19 09:00 09/02/19 08:40 Lovenox SC 30 mg 0900 CELESTE Administration Piperacillin Sod/Tazobactam 100 mls @ 200 mls/hr 09/01/19 10:00 09/02/19 10: 38 Sod 3.375 gm/ Sodium Chloride IVPB 100 mls Q8H CELESTE Administration Vancomycin HCl 1.25 gm/ Sodium 250 mls @ 166.667 mls/hr 09/01/19 23:00 22:39 Chloride IVPB 250 mls 2300 CELESTE Administration Iron/Minerals/Multivitamins 15 ml 09/02/19 09:00 09/02/19 08:42 Certa Gerard Liquid PER TUBE 15 ml DAILY CELESTE Administration Mirtazapine 30 mg 09/01/19 21:00 09/01/19 20:53 Remeron PER TUBE 30 mg HS CELESTE Administration Mometasone Furoate/Formoterol Fumar 2 puff 09/01/19 18:30 09/02/19 08:04 Dulera 200 Mcg/5 Mcg Inhaler INH 2 puff BID-RT CELESTE Administration Polyethylene Glycol 17 gm 09/02/19 08:30 09/02/19 10:38 Miralax PO 17 gm DAILYPRN PRN Administration CONSTIPATION Sodium Chloride 10 ml 09/01/19 21:00 09/02/19 08:43 Flush - Normal Saline IVF 10 ml Q12HR CELESTE Administration Sodium Chloride 10 ml 09/01/19 09:30 09/01/19 10:42 Flush - Normal Saline IVF 10 ml PRN PRN Administration Saline Flush - Exam General Appearance: NAD, awake alert, ill appearing Eye: PERRL Heart: RRR Respiratory: normal chest expansion, rales, rhonchi Gastrointestinal: soft, normal bowel sounds Hosp A/P - Plan SIRS leukocytosis Bronchitis both infection and inflammation likely going on. Metastatic lung cancer --undergoing treatment w.. Dr. vargas --they have appt ricky Vargas on saturday. Getting CT chest and consulted Dr. Vargas and will consider involving Dr. Major, pulmonary as well. DNR
[2019-09-02] MEDS ORDERED: Iopamidol 370 76% 100 ML VIAL ONE ×2 (16:05→16:14)
--- NOTE | 2019-09-02 16:23 | CON ---
DATE OF CONSULTATION: REASON FOR CONSULTATION: Lung cancer. HISTORY OF PRESENT ILLNESS: Mr. 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 He had wedge resections with negative margins in 2014. He has undergone multiple chemotherapy treatments and is currently on immunotherapy with Keytruda. His most recent PET scan on July 23, showed overall stable disease except for a solitary new small peritracheal node. The patient was having functional decline and significant weight loss. He did have a PEG tube placed. Over the last week or so, he has been having some issues with his feeding tube and has seen Dr. Bernal. Yesterday, he was brought in to the emergency room for slurred speech, urinary incontinence, and facial droopiness. He underwent a chest x-ray, which showed stable pleural parenchymal densities of the right upper lobe and stable pulmonary nodules of the left upper lobe. His white count on arrival was 14.9 with 85% neutrophils. Sodium was 131. He was cultured and started on empiric antibiotics with improvement of his white blood cells. His neuro status has returned to baseline as well. The patient was seen at bedside with present. PAST MEDICAL HISTORY: 1. Metastatic lung cancer, currently on immunotherapy. 2. Diabetes mellitus, type 2. 3. Hypertension. 4. COPD. 5. Hyperlipidemia. 6. BPH. PAST SURGICAL HISTORY: 1. Laparoscopic Justino fundoplication. 2. Wedge resection of his lungs. 3. PEG tube placement. ALLERGIES: CODEINE. HOME MEDICATIONS: 1. Advair. 2. Aspirin. 3. Atorvastatin. 4. Gabapentin. 5. Hydroxyzine. 6. Megestrol. 7. Metformin. 8. [place]. 9. Flomax. 10. Temazepam. FAMILY HISTORY: Father had colon cancer in his 70s. SOCIAL HISTORY: , 4 children. Lives with his spouse. No alcohol, tobacco, or illicit drug use. Former smoker. REVIEW OF SYSTEMS: A 10-point review of systems is positive for chronic cough, fatigue, and anorexia. PHYSICAL EXAMINATION: GENERAL: A thin male, in no acute distress. HEENT: Normocephalic and atraumatic. Pupils are equal and reactive to light. CV: Regular rate and rhythm. LUNGS: Diminished. ABDOMEN: Soft. He has PEG tube in place. EXTREMITIES: No clubbing or cyanosis. SKIN: No rash. HEMATOLOGICAL: No petechiae or purpura. NEUROLOGICAL: Nonfocal. PERTINENT LABS AND X-RAYS: Current WBCs are 10.7, hemoglobin 8.2, hematocrit 26.1, platelet counts 452,000. He has 73% neutrophils and 9% lymphocytes. Sodium 133, potassium 3.9, chloride 103, CO2 is 21, BUN is 9, creatinine 0.66. Lactic acid is 1.4. Calcium 9. Bilirubin 0.3, AST is 11, ALT is less than 7, alkaline phosphatase is 64. Troponin is negative. Serum total protein 6.7, albumin 2.9, globulin 3.8. ASSESSMENT: 1. Metastatic lung cancer. 2. Toxic metabolic encephalopathy. DISCUSSION: The patient's leukocytosis has resolved with antibiotics. He is currently scheduled for a CT of his chest to further evaluate his lungs. He has been struggling with his PEG tube. It is possible that he may have aspirated and may have a little bit of aspiration pneumonia. We would recommend continuing antibiotics and tube feeds, and we will follow along with his hospital course. Thank you for the consult. Job ID: [id number]
[2019-09-02] MEDS ORDERED: predniSONE 20 MG TAB PO SCH (19:30)
[2019-09-02] MEDS ORDERED: Piperacillin/Tazobactam 3.375 GM in Sodium Chloride 0.9% 100 ML IVPB SCH (19:30)
[2019-09-02] MEDS: Mirtazapine 30 MG TAB PER TUBE SCH (20:20)
[2019-09-02] MEDS: Atorvastatin Calcium 10 MG TAB PER TUBE SCH (20:20)
[2019-09-02] MEDS: Diabetic Tussin 200 MG/10 ML UDCUP PER TUBE PRN (20:21)
[2019-09-02] MEDS: guaiFENesin ER 600 MG TAB PO SCH (20:28)
[2019-09-02] MEDS: Vancomycin HCl 1.25 GM in Sodium Chloride 0.9% 250 ML 250 ML IVPB SCH (23:54)
--- NOTE | 2019-09-03 01:38 | CON ---
DATE OF CONSULTATION: 09/02/2019 SERVICE: Pulmonary Medicine. REASON FOR CONSULTATION: Abnormal CT. HISTORY OF PRESENT ILLNESS: The patient is a 74-year-old male with past medical history significant for widely spread metastatic adenocarcinoma. He was getting chemotherapy up until 3 weeks ago. At that point, a decision was made to discontinue interventions moving forward, because of significant weight reduction, and decreased functional status. Either way, he started having increasing weakness and was brought to the emergency department, where he was discovered to have severe sepsis. He was tucked into the hospital and initiated on broad-spectrum antibiotics and his white blood cell count downtrended. A CT of the chest was performed redemonstrating a widely metastatic process, which was noted about on PET scan early July of 2019. He relates having progressive increasing shortness of breath and cough over a period of about 9 months. About 3 months ago, his functional status started to fairly quickly deteriorate. He currently denies any fevers, or night sweats. He denies having any hemoptysis, but he does get choked up on very thick mucus. Sometimes, he has hard time swallowing things down. As such, recently a PEG tube was placed. Since being in the hospital, his strength is improving albeit slowly. There has been no interval change to his condition otherwise. PAST MEDICAL HISTORY: 1. Adenocarcinoma of the lung, widely metastatic. 2. BPH. 3. Type 2 diabetes mellitus. 4. Dyslipidemia. 5. Hypertension. PAST SURGICAL HISTORY: 1. Right-sided lobectomy. 2. PEG tube placement. 3. Port-A-Cath placement. SOCIAL HISTORY: Negative for alcohol, tobacco, or illicit drug use. He has a remote history of smoking. He denies any exposure to chemicals, dust, asbestos , or tuberculosis. FAMILY HISTORY: Noncontributory. ALLERGIES: TRAMADOL, CODEINE. MEDICATIONS: List of his inpatient medications was reviewed. No specific updates were made at this time. REVIEW OF SYSTEMS: General, head, ears, eyes, nose, throat, cardiovascular, respiratory, GI, , musculoskeletal, neurologic, and skin is negative except as mentioned in the HPI. PHYSICAL EXAMINATION: VITAL SIGNS: Afebrile, pulse 100, blood pressure 116/61, respirations 16 and saturation 100% on 2 L nasal cannula. GENERAL: The patient is awake and alert, in no apparent distress. LUNGS: Reduced air entry with a prolonged expiratory phase. Wheezing is present. Rhonchi are also noted. No crackles are appreciated. HEART: Normal rate, regular. ABDOMEN: Soft, nontender nondistended. Bowel sounds are positive. MUSCULOSKELETAL: No cyanosis or clubbing. There is no pitting in the bilateral lower extremities. NEUROLOGIC: Grossly nonfocal. LABORATORY DATA: WBC 10.7 and downtrending, hemoglobin 8.2, platelets are 452, 000. Basic metabolic profile is unremarkable. Liver function studies are unremarkable. Lactate is negative x2. Troponin is unremarkable. Urinalysis is positive for 7 -10 white blood cells and negative nitrites. Leukocyte esterase is minimally elevated. That being said, staph aureus is strongly present in the urine culture with greater than 100,000 colony-forming units per mL. Influenza A and B are unremarkable. Blood cultures x2 are negative to date. IMAGING: CT of the chest demonstrates widely metastatic process with multiple pulmonary nodules, scattered throughout bilateral lung chavez, right upper lobe infiltrate, which are not terribly significantly different from the PET scan from July. There is a right supraclavicular lymph node with a necrotic-appearing center. Otherwise, lymphadenopathy is fairly extensive throughout the mediastinum. Small ground-glass opacifications are present, and there is a miniscule pleural effusion on the left. Pericardial effusion has increased in size, but it does not appear to be significantly enlarged. ASSESSMENT: 1. Acute hypoxic respiratory failure. 2. Adenocarcinoma of the lung, widely metastatic. 3. Sepsis without end-organ damage. 4. Urinary tract infection secondary to Staphylococcus aureus. DISCUSSION AND PLAN: It is not clear to me whether not the patient has pneumonia. Frankly, the CT findings and infiltrates appear very similar compared to the PET scan. I cannot exclude the possibility of a bullitis in the right upper lobe. As such, an extended course of antibiotics may be indicated here. Staphylococcus aureus should not be found in the urine. If it is there, the assumption is that it got there by hematogenous means. I will request an echocardiogram to specifically look closely at the valvular structures to make certain that there is no evidence of endocarditis here. Empiric antibiotics will be continued. I will schedule some Mucinex and nebulized medications to see, if this helps liberate some of the sputum. Dr. Smith has an established relationship with [facility] and will assume coverage starting tomorrow morning. Pulmonary/Critical Care will continue to follow. 70 minutes have been devoted to this patient in various activities. I personally reviewed all imaging studies and laboratory data noted within this document. For fifty percent of this time, I was interacting with the patient at the bedside or coordinating care with the care team. For the remainder of the time I was immediately available to the patient in the hospital unit. Job ID: [id number] MTDD
[2019-09-03] MEDS ORDERED: Piperacillin/Tazobactam 3.375 GM in Sodium Chloride 0.9% 100 ML IVPB SCH (02:00)
[2019-09-03 04:24] LABS: Phosphorus 3.6 mg/dL (2.3-4.7)
[2019-09-03 04:26] LABS: Anion Gap 13 mmol/L (10-20); BUN (Urea Nitrogen) 6 mg/dL (8.4-25.7); Calc. Creatinine Clearance 79 mL/min (70-130); Calcium 9.4 mg/dL (7.8-10.44); Carbon Dioxide 21 mmol/L (23-31); Chloride 103 mmol/L (98-107); Estimated GFR-MDRD Greater than 90; Glucose 181 mg/dL (83-110); Magnesium 1.8 mg/dL (1.6-2.6); Potassium 4.1 mmol/L (3.5-5.1); Sodium 133 mmol/L (136-145)
[2019-09-03] MEDS: Piperacillin/Tazobactam 3.375 GM in Sodium Chloride 0.9% 100 ML IVPB SCH ×3 (04:31→19:43)
[2019-09-03] MEDS: Multivits W-Minerals Liquid 15 ML LIQ PER TUBE SCH ×2 (08:16→12:14)
[2019-09-03] MEDS: Enoxaparin Sodium 30 MG/0.3 ML SYRINGE SC SCH ×2 (08:22→12:13)
[2019-09-03] MEDS: predniSONE 20 MG TAB PO SCH ×2 (08:23→12:13)
[2019-09-03] MEDS: guaiFENesin ER 600 MG TAB PO SCH ×3 (08:23→20:52)
[2019-09-03] MEDS: Aspirin Chewable 81 MG TAB PER TUBE SCH ×2 (08:23→12:13)
--- NOTE | 2019-09-03 08:43 | PRG ---
DATE OF SERVICE: 09/03/2019 SUBJECTIVE: He is lying in bed, does not appear in any distress, but is not conversant this morning. OBJECTIVE: VITAL SIGNS: His temperature 99.1, pulse 101, respirations 16, O2 saturation 98% on 2 L, blood pressure 132/58. HEENT: Unremarkable. NECK: No adenopathy or JVD. LUNGS: Diminished breath sounds in the right upper lobe, otherwise clear bilaterally. CARDIAC: S1 and S2 regular. ABDOMEN: Soft. PEG tube noted. EXTREMITIES: Muscle wasting present. LABORATORY DATA: Sodium 133, potassium 4.1, BUN 6, creatinine 0.6, glucose 181. White blood cell count 10.7, hematocrit 26.1, and platelet count 452. ASSESSMENT: 1. Metastatic adenocarcinoma of the lung. 2. Sepsis with urinary tract infection secondary to Staphylococcus aureus. 3. Question of right upper lobe pneumonia. PLAN: At this point, about the only thing we can offer is continuation of the antibiotics, breathing treatments, and other supportive care. I agree with the steroids. The patient is DNR. Job ID: [id number]
[2019-09-03] MEDS: Mometasone/Formoterol 120 PUFF INHALER INH SCH ×2 (09:09→19:28)
--- NOTE | 2019-09-03 09:25 | CT ---
EXAM: CT Brain W WO Con PROVIDED CLINICAL HISTORY: Small cell lung cancer. Advanced lung cancer. Confusion. Evaluate for metastatic disease. COMPARISON: MRI brain on 03/06/2016. FINDINGS: There is no evidence of a hemorrhage, acute infarction, mass effect, or midline shift. No abnormal ar eas of enhancement are seen after the administration of intravenous contrast. Mild cerebral volume loss is present. The ventricular system is normal in size, shape, and position f or the degree of sulcal atrophy. The visualized paranasal sinuses and mastoid air cells are clear. Calvarial structures have a normal appearance. No suspicious lytic or sclerotic osseous lesions are identified. Dense vascular calcifications are seen in the distal vertebral arteries and to a lesser extent involv ing the carotid siphons. IMPRESSION: 1. No acute intracranial abnormalities demonstrated. 2. No CT findings to suggest metastatic disease. However, MRI would be more sensitive study of choice to evaluate for small metastatic lesions.
[2019-09-03] MEDS ORDERED: Sodium Chloride 0.9% 1,000 ML IV SCH (09:45)
--- NOTE | 2019-09-03 09:56 | PDOC.MOPN ---
Interval History: Patient was code green in CT. Moved to IMCU. responds to painful stimuli only - Vital Signs Vital Signs: Weight Admit Weight 123 lb 14.4 oz Weight 123 lb 14.4 oz - Physical Exam General: No acute distress HEENT: Atraumatic, PERRLA, EOMI, Mucous membr. moist/pink Lungs: Clear to auscultation, Normal air movement Cardiovascular: Regular rate, Normal S1, Normal S2, No murmurs, Gallops, Rubs Abdomen: Normal bowel sounds, Soft, No tenderness, No hepatospenomegaly, No masses Extremities: No clubbing, No cyanosis, No edema, Normal pulses, No tenderness/ swelling Skin: No rashes, No breakdown, No significant lesion Psych/Mental Status: Other (somnolent) - Labs Result Diagrams: 09/02/19 03:47 09/03/19 03:31 Lab results: Laboratory Results - last 24 hr 09/03/19 08:58: POC Glucose 145 H 09/03/19 03:31: Phosphorus 3.6 09/03/19 03:31: Sodium 133 L, Potassium 4.1, Chloride 103, Carbon Dioxide 21 L, Anion Gap 13, BUN 6 L, Creatinine 0.64 L, Estimated GFR (MDRD) Greater than 90 , Glucose 181 H, Calcium 9.4, Magnesium 1.8 Status: lab reviewed by me A/P - Problem (1) 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 Current Visit: No Code(s): C34.10 - MALIGNANT NEOPLASM OF UPPER LOBE, UNSP BRONCHUS OR LUNG Status: Chronic (2) Severe protein-calorie malnutrition Current Visit: No Code(s): E43 - UNSPECIFIED SEVERE PROTEIN-CALORIE MALNUTRITION Status: Chronic - Plan Plan: Patient in DNR. CT shows stable to worsening disease Patient on Keytruda as too weak for any chemo Steroids initiated per Pulm Discuss with . PCT consulted
--- NOTE | 2019-09-03 13:24 | PDOC.HOSPP ---
- Subjective Encounter Date: 09/03/19 Encounter Time: 09:00 Subjective: RApid response called this am shortly after CT head done for not responding much. during my eval, vitals were stable. pt barely responding much. BP dropping. 1 li bolus and moved to monitored bed. Later around 1230pm , i visited him again. he responds for verbal stimulation. their winder helper and family member at bedside. prefers not to feed him via peg tube now. d/w RN. though neuro consult not unreasonable, his overall prognosis is poor. CT head did not show metastatic lesions. Appreciate the palliative involvement. - Objective Vital Signs & Weight: Vital Signs (12 hours) Temp Pulse Pulse Pulse Resp Resp BP 09/03/19 12:13 101 H 09/03/19 11:23 97.6 F 09/03/19 08:43 93 94 20 22 H 118/61 BP Pulse Ox Pulse Ox 09/03/19 12:13 09/03/19 11:23 09/03/19 08:43 101/53 L 100 98 Weight Admit Weight 123 lb 14.4 oz Weight 123 lb 14.4 oz I&O: 09/02/19 09/03/19 09/04/19 06:59 06:59 06:59 Intake Total 1550 Balance 1550 Result Diagrams: 09/02/19 03:47 09/03/19 03:31 Additional Labs: Accuchecks 09/03/19 08:58 POC Glucose 145 H Hospitalist ROS - Medication Medications: Active Medications Generic Name Dose Route Start Last Admin Trade Name Freq PRN Reason Stop Dose Admin Acetaminophen 500 mg 09/01/19 05:46 09/02/19 09:53 Tylenol PER TUBE 500 mg Q6H PRN Administration Mild-Moderate Pain (1-5) Acetaminophen 1,000 mg 09/01/19 05:46 09/01/19 20:53 Tylenol PER TUBE 1,000 mg Q6H PRN Administration Moderate to Severe Pain (6-10) Albuterol/Ipratropium 3 ml 09/02/19 19:00 09/03/19 09:10 Duoneb NEB Not Given [id number]-EU CELESTE Aspirin 81 mg 09/02/19 09:00 09/03/19 12:13 Aspirin Chewable PER TUBE Not Given DAILY [facility] Atorvastatin Calcium 10 mg 09/01/19 21:00 09/02/19 20:20 Lipitor PER TUBE 10 mg QPM CELESTE Administration Diltiazem HCl 120 mg 09/02/19 09:00 09/03/19 12:13 Cardizem Cd PO Not Given QAM CELESTE Enoxaparin Sodium 30 mg 09/02/19 09:00 09/03/19 12:13 Lovenox SC Not Given 0900 CELESTE Guaifenesin 100 mg 09/01/19 05:59 09/02/19 20:21 Robitussin Sf PER TUBE 100 mg Q6H PRN Administration Cough Guaifenesin 1,200 mg 09/02/19 21:00 09/03/19 12:14 Mucinex PO Not Given Q12HR CELESTE Vancomycin HCl 1.25 gm/ Sodium 250 mls @ 166.667 mls/hr 09/01/19 23:00 23:54 Chloride IVPB 250 mls 2300 CELESTE Administration Piperacillin Sod/Tazobactam 100 mls @ 200 mls/hr 09/03/19 04:00 09/03/19 04: 31 Sod 3.375 gm/ Sodium Chloride IVPB 100 mls 0400,1200,2000 CELESTE Administration Iron/Minerals/Multivitamins 15 ml 09/02/19 09:00 09/03/19 12:14 Certa Gerard Liquid PER TUBE Not Given DAILY CELESTE Mirtazapine 30 mg 09/01/19 21:00 09/02/19 20:20 Remeron PER TUBE 30 mg HS CELESTE Administration Mometasone Furoate/Formoterol Fumar 2 puff 09/01/19 18:30 09/03/19 09:09 Dulera 200 Mcg/5 Mcg Inhaler INH 2 puff BID-RT CELESTE Administration Polyethylene Glycol 17 gm 09/02/19 08:30 09/02/19 10:38 Miralax PO 17 gm DAILYPRN PRN Administration CONSTIPATION Prednisone 40 mg 09/03/19 08:00 09/03/19 12:13 Prednisone PO 09/06/19 08:01 Not Given QAM-WM CELESTE Sodium Chloride 10 ml 09/01/19 21:00 09/03/19 12:14 Flush - Normal Saline IVF Not Given Q12HR CELESTE Sodium Chloride 10 ml 09/01/19 09:30 09/01/19 10:42 Flush - Normal Saline IVF 10 ml PRN PRN Administration Saline Flush - Exam General Appearance: ill appearing Eye: PERRL, anicteric sclera ENT: normocephalic atraumatic, no oropharyngeal lesions Neck: supple, symmetric Heart: RRR, no murmur Respiratory: CTAB Gastrointestinal: normal bowel sounds Neurological: no focal deficits, no new deficit Hosp A/P - Plan SIRS leukocytosis Bronchitis both infection and inflammation likely going on. Metastatic lung cancer --undergoing treatment w.. Dr. vargas --they have appt w.. dR. Vargas on saturday. Getting CT chest and consulted Dr. Vargas and will consider involving Dr. Major, pulmonary as well. DNR 13th RApid response called this am shortly after CT head done for not responding much. during my eval, vitals were stable. pt barely responding much. BP dropping. 1 li bolus and moved to monitored bed. Later around 1230pm , i visited him again. he responds for verbal stimulation. their winder helper and family member at bedside. prefers not to feed him via peg tube now. d/w RN. Will consider restarting his meds and TF if is agreeable with that. - though neuro consult not unreasonable, his overall prognosis is poor. He wound not handle MRI scan in his current status. -CT head did not show metastatic lesions. Appreciate the palliative involvement.
--- NOTE | 2019-09-03 13:45 | PQF ---
DATE: 09-03-19 ATTN: DR. CHUNG COLE Please exercise your independent, professional judgment in responding to the clarification form. Clinical indicators are provided on the bottom of this form for your review Please check appropriate box(s) to clarify if the following diagnosis has been ruled in or ruled out: SEPSIS [ ] Ruled in diagnosis [ ] Continue to treat [ ] Resolved [ ] Ruled out diagnosis [ ] Other diagnosis [ x ] Unable to determine In addition, please specify: Present on Admission (POA): [ ] Yes [ ] No [ ] Unable to determine For continuity of documentation, please document condition throughout progress notes and discharge summary. Thank You. CLINICAL INDICATORS - SIGNS / SYMPTOMS / LABS / RESULTS AND LOCATION IN MR: ER DX 09-01-19: SEPSIS, CLINICAL PNEUMONIA H&P 09-01-19: SYSTEMIC INFLAMMATORY RESPONSE SYNDROME, METABOLIC ENCEPHALOPATHY THAT HAS RESOLVED, HX OF LUNG CA WITH METS, FTT CONSULT NOTE DR. ARTEAGA 09-02-19: SEPSIS W/O END ORGAN DAMAGE CONSULT NOTE DR. BERRY 09-02-19: SEPSIS WITH UTI 2/2 STAPHYLOCOCCUS AUREUS WBC: 08-31-19: 14.9 09-01-19: 15.0 ER NOTES 09-01-19: BP: 96/58, 94/62, 93/57 ER NOTES 09-01-19: PULSE: 118, 105, 100, 101 ER NOTES 09-01-19: TEMP 99.4, 99.2 RISK FACTORS / RESULTS AND LOCATION IN MR: ER DX 09-01-19: SEPSIS, CLINICAL PNEUMONIA CONSULT NOTE DR. IRENE PRECIADO 09-02-19: IT IS POSSIBLE THAT HE MAY HAVE ASPIRATED AND MAY HAVE A LITTLE BIT OF ASPIRATION PNEUMONIA. CONSULT NOTE DR. ARTEAGA 09-02-19: ACUTE RESPIRATORY FAILURE, ADENOCARCINOMA OF LUNG WIDELY METASTATIC, SEPSIS W/O END ORGAN DAMAGE, UTI 2/2 TO STAPHYLOCOCCUS AUREUS TREATMENTS / RESULTS AND LOCATION IN MR: MAR 09-01-19: ZOSYN IV, 09-01-19: VANCOMYCIN IV, NS IVF 09-03-19 (This form is maintained as a part of the permanent medical record) 2014 [employer] All Rights Reserved [email or web address] [email or web address] Office: [phone] [facility]
--- NOTE | 2019-09-03 15:52 | MRI ---
MRI OF BRAIN WITH AND WITHOUT CONTRAST: 09/03/19 INDICATIONS: History of small cell lung cancer. Confusion. Assess for metastatic disease or CVA. Correlation made to CT brain from earlier today. FINDINGS: Mild cortical volume loss. Ventricles have normal size and position. Very mild chronic ischemic white matter change is noted. No evidence of restricted diffusion. No evidence of acute infarct, mass, or edema. Motion artifact degrades the postcontrast sequences. No abnormal enhancement identified. No evidence of metastatic lesion identified. Intracranial internal carotid arteries and proximal cerebral arteries, basilar artery, dural venous s inuses all exhibit expected flow voids. Paranasal sinuses appear clear. IMPRESSION: 1. No evidence of metastatic lesion identified. 2. No acute process identified. POS: [facility]
[2019-09-03] MEDS ORDERED: Magnevist 469MG/ML 20 ML VIAL ONE (16:44)
--- NOTE | 2019-09-03 17:21 | PDOC.PALCO ---
Palliative Care Consult - Consult Details Requesting Physician: Dr Gregory Reason for Consult: goals of care, family support, complex decision-making Family Members Present: Patient , brother nad nephew - Pertinent HPI 74 year old male who lives independently at home with his as primary caregiver. He has had decline secondary to lung cancer with mets to lymph nodes. Increasing weakness with PEG secondary to dysphagia related to metastatic cancer. Patient had incontinency at home with slurred speech and congestion and altered mental status that onset and progressed 09/01. Presented to the emergency room for evaluation and admitted secondary to systemic inflammatory response syndrome, Failure to thrive, metastatic lung cancer. During rCT the morning of 09/03 patient became unresponsive, darrel ramírez called. Patient was stabilized and transferred to [facility] for higher level of care. - Social History Smoking Status: Never smoker Smoking: no tobacco exposure Alcohol Use: none Drug Use History: none Living Situation: - Medications MAR Reviewed: Yes - Allergies Allergies/Adverse Reactions: Allergies Allergy/AdvReac Type Severity Reaction Status Date / Time codeine Allergy Severe RASH, Verified 03/06/16 11:54 TROUBLE BREATHING morphine Allergy Verified 09/01/19 06:12 tramadol Allergy Verified 05/20/19 17:49 - Subjective Awake, alert, complains of difficulty clearing secretions. Denies pain, confusion. Remembers events from the morning. - ROS Constitutional: alert, weakness ENT: difficulty swallowing Respiratory: other (cough) Cardiology: other (denies chest pain/palpitations) Gastrointestinal: other (denies nausea, vomiting, abdominal discomfort) - Objective Vital Signs: Vital Signs - Most Recent Temp Pulse Resp BP Pulse Ox 97.6 F 93 20 112/60 96 09/03/19 11:23 09/03/19 14:55 09/03/19 14:55 09/03/19 14:55 09/03/19 14:55 Palliative Performance Scale: 40 - Physical Exam Constitutional: emaciated, ill appearing HEENT: EOMI, moist MMs, sclera anicteric Respiratory: unlabored breathing Cardiovascular: RRR Gastrointestinal: continent, soft (PEG), non-tender Genitourinary: continent Musculoskeletal: pulses present Neurology: moves all 4 limbs Skin: cap refill <2 seconds, no lesions, no rash Psychiatric: A&O x 3, flat affect - Problem List (1) Palliative care encounter Code(s): Z51.5 - ENCOUNTER FOR PALLIATIVE CARE Current Visit: Yes Status: Acute (2) Dysphagia Code(s): R13.10 - DYSPHAGIA, UNSPECIFIED Current Visit: Yes Status: Acute (3) Physical deconditioning Code(s): R53.81 - OTHER MALAISE Current Visit: Yes Status: Acute (4) Decreased oral intake Code(s): R63.8 - OTHER SYMPTOMS AND SIGNS CONCERNING FOOD AND FLUID INTAKE Current Visit: No Status: Acute (5) 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 Code(s): C34.10 - MALIGNANT NEOPLASM OF UPPER LOBE, UNSP BRONCHUS OR LUNG Current Visit: No Status: Chronic (6) Severe protein-calorie malnutrition Code(s): E43 - UNSPECIFIED SEVERE PROTEIN-CALORIE MALNUTRITION Current Visit: No Status: Chronic - Plan/Recommendations Plan: Met with patient and , introduced palliative care program. Discussed options of symptom management and that our team would like to follow up 09/04 to discuss goal of care with current prognosis and expected trajectory. Patient and agreeable, will follow up for lengthy conversation 09/04. *Scopolamine patch to mitigate secretions [50] minutes spent on this encounter with >50% of the time in counseling and coordination of care. Thank you for this very appropriate consult.
--- NOTE | 2019-09-03 17:48 | CON ---
DATE OF CONSULTATION: 09/03/2019 CONSULTING PHYSICIAN: Hospitalist Service. IMPRESSION: Transient encephalopathy, possibly secondary to subclinical seizure activity. PLAN: Monitor for further events. HISTORY OF PRESENT ILLNESS: Mr. Pickering is a 74-year-old man who was admitted to the hospital with possible pneumonia. He has a history of lung cancer and is undergoing treatment with Dr. Devi. He was doing well according to his until this morning. He went down for a CAT scan and was suddenly unresponsive. They called a code and he had a CT scan of the brain done. There was no evidence of any acute abnormalities. Followup MRI of the brain showed similar findings without evidence of stroke or metastasis. He awoke earlier today and has been conversant once again. He cannot really remember any details. Otherwise, no obvious seizure activity was reported by anyone. His cardiovascular status apparently was stable throughout the event. Nurse reports she was applying sternal rub and he had no response to the pain. PAST MEDICAL HISTORY: Lung cancer. ALLERGIES: CODEINE, MORPHINE, TRAMADOL. SOCIAL HISTORY: Positive for tobacco use. No recent drug or alcohol use. His last chemotherapy was 3 weeks ago. REVIEW OF SYSTEMS: 10 system review of systems is otherwise negative. PHYSICAL EXAMINATION: GENERAL: He is a thin elderly man, sitting up in bed, in no acute distress. VITAL SIGNS: Stable. He is afebrile. HEENT: Cranium, normocephalic and atraumatic. Oropharynx clear. Conjunctivae are clear. NECK: Supple. EXTREMITIES: No cyanosis or edema. NEUROLOGIC: He was alert and cooperative. He answers questions appropriately. Followed commands appropriately. There was no facial asymmetry. He was a bit tremulous, but he had good antigravity strength. He had good manager dialysis strength bilaterally. Sensation was intact to touch. LABORATORY DATA: EKG shows a sinus rhythm. SUMMARY: This gentleman had transient unresponsiveness, which was apparently quite deep and unresponsive to pain. His workup thus far is unremarkable. It does not appear to be a malignant etiology to it. I would monitor him for further events and consider a stat EEG if he relapses back into his unresponsive state. Job ID: [id number]
[2019-09-03] MEDS: Scopolamine 1.5 mg/72 hour Patch TD SCH (19:43)
[2019-09-03] MEDS: Atorvastatin Calcium 10 MG TAB PER TUBE SCH (20:53)
[2019-09-03] MEDS: Mirtazapine 30 MG TAB PER TUBE SCH (20:53)
[2019-09-03 22:23] LABS: Vancomycin, Trough 9.1 ug/mL
[2019-09-03] MEDS: Vancomycin HCl 1.25 GM in Sodium Chloride 0.9% 250 ML 250 ML IVPB SCH (23:20)
[2019-09-04] MEDS: Acetaminophen 500 MG TAB PER TUBE PRN ×4 (00:30→21:55)
[2019-09-04 03:56] LABS: Anion Gap 13 mmol/L (10-20); BUN (Urea Nitrogen) 8 mg/dL (8.4-25.7); Calc. Creatinine Clearance 81 mL/min (70-130); Calcium 9.3 mg/dL (7.8-10.44); Carbon Dioxide 23 mmol/L (23-31); Chloride 105 mmol/L (98-107); Estimated GFR-MDRD Greater than 90; Glucose 143 mg/dL (83-110); Magnesium 1.7 mg/dL (1.6-2.6); Potassium 3.5 mmol/L (3.5-5.1); Sodium 137 mmol/L (136-145)
[2019-09-04 04:01] LABS: Phosphorus 2.3 mg/dL (2.3-4.7)
[2019-09-04] MEDS: Piperacillin/Tazobactam 3.375 GM in Sodium Chloride 0.9% 100 ML IVPB SCH ×3 (05:29→20:12)
[2019-09-04] MEDS: Mometasone/Formoterol 120 PUFF INHALER INH SCH ×2 (06:54→19:51)
--- NOTE | 2019-09-04 08:13 | PRG ---
DATE OF SERVICE: 09/04/2019 SUBJECTIVE: The patient had altered mental status yesterday, which was most profound while he was getting an MRI. He was transferred to the [facility]. Today, I found him fully awake, alert, with family at the bedside. Of note, the MRI yesterday did not show any significant findings. OBJECTIVE: VITAL SIGNS: His temperature is 98.4, pulse 101, blood pressure 134/61, O2 saturation 100%. HEENT: Unremarkable. NECK: No adenopathy or JVD. LUNGS: Coarse rhonchi. CARDIOVASCULAR: S1 and S2. Regular. ABDOMEN: Soft. EXTREMITIES: No edema. LABORATORY DATA: Sodium 137, potassium 3.5, chloride 105, CO2 of 23, BUN 8, creatinine 0.6, glucose 143, and calcium 9.3. ASSESSMENT: 1. Transient change in mental status, now back to baseline. 2. Metastatic lung cancer. PLAN: 1. I will give his nebulization treatments with EzPAP to see if we can mobilize some of the secretions. I am not sure if the secretions are due to infection or cancer itself with excess mucus production. 2. The patient can be transferred to the Oncology floor from my standpoint. Job ID: [id number]
[2019-09-04] MEDS: guaiFENesin ER 600 MG TAB PO SCH ×2 (10:41→21:55)
[2019-09-04] MEDS: Aspirin Chewable 81 MG TAB PER TUBE SCH (10:42)
[2019-09-04] MEDS: Enoxaparin Sodium 30 MG/0.3 ML SYRINGE SC SCH (10:42)
[2019-09-04] MEDS: predniSONE 20 MG TAB PO SCH (10:42)
[2019-09-04] MEDS: Multivits W-Minerals Liquid 15 ML LIQ PER TUBE SCH (10:42)
[2019-09-04] MEDS: Vancomycin HCl 1 GM in Premix Bag 1 BAG IVPB SCH ×2 (10:43→21:56)
[2019-09-04 14:41] VITALS: BMI 21.4
--- NOTE | 2019-09-04 15:00 | PDOC.HOSPP ---
- Subjective Encounter Date: 09/04/19 Encounter Time: 12:50 Subjective: pt is much better today, AOx3; even able to tell me the street name where he lives. He could not recall what happened to him and does not know any prodromal sxs prior to being unresponsive. TF started. - Objective Vital Signs & Weight: Vital Signs (12 hours) Pulse Resp Pulse Ox 09/04/19 10:41 103 H 09/04/19 10:02 103 H 20 97 09/04/19 08:00 98 09/04/19 06:53 98 19 100 Weight Admit Weight 123 lb 14.4 oz Weight 136 lb 8 oz Most Recent Monitor Data Heart Rate from ECG 96 NIBP 122/59 NIBP BP-Mean 80 Respiration from ECG 20 SpO2 100 I&O: 09/03/19 09/04/19 09/05/19 06:59 06:59 06:59 Intake Total 2938 954 Balance 2938 954 Result Diagrams: 09/02/19 03:47 09/04/19 03:12 Hospitalist ROS - Medication Medications: Active Medications Generic Name Dose Route Start Last Admin Trade Name Freq PRN Reason Stop Dose Admin Acetaminophen 500 mg 09/01/19 05:46 09/02/19 09:53 Tylenol PER TUBE 500 mg Q6H PRN Administration Mild-Moderate Pain (1-5) Acetaminophen 1,000 mg 09/01/19 05:46 09/04/19 12:58 Tylenol PER TUBE 1,000 mg Q6H PRN Administration Moderate to Severe Pain (6-10) Albuterol/Ipratropium 3 ml 09/04/19 11:00 09/04/19 10:02 Duoneb EZPAP 3 ml [id number] CELESTE Administration Aspirin 81 mg 09/02/19 09:00 09/04/19 10:42 Aspirin Chewable PER TUBE 81 mg DAILY CELESTE Administration Atorvastatin Calcium 10 mg 09/01/19 21:00 09/03/19 20:53 Lipitor PER TUBE 10 mg QPM CELESTE Administration Diltiazem HCl 120 mg 09/02/19 09:00 09/04/19 10:41 Cardizem Cd PO 120 mg QAM CELESTE Administration Enoxaparin Sodium 30 mg 09/02/19 09:00 09/04/19 10:42 Lovenox SC 30 mg 0900 CELESTE Administration Guaifenesin 100 mg 09/01/19 05:59 09/02/19 20:21 Robitussin Sf PER TUBE 100 mg Q6H PRN Administration Cough Guaifenesin 1,200 mg 09/02/19 21:00 09/04/19 10:41 Mucinex PO 1,200 mg Q12HR CELESTE Administration Piperacillin Sod/Tazobactam 100 mls @ 200 mls/hr 09/03/19 04:00 09/04/19 12: 57 Sod 3.375 gm/ Sodium Chloride IVPB 100 mls 0400,1200,2000 CELESTE Administration Vancomycin HCl 1 gm/ Device 200 mls @ 200 mls/hr 09/04/19 09:00 09/04/19 10: 43 IVPB 200 mls Q12HR CELESTE Administration Iron/Minerals/Multivitamins 15 ml 09/02/19 09:00 09/04/19 10:42 Certa Gerard Liquid PER TUBE 15 ml DAILY CELESTE Administration Mirtazapine 30 mg 09/01/19 21:00 09/03/19 20:53 Remeron PER TUBE 30 mg HS CELESTE Administration Mometasone Furoate/Formoterol Fumar 2 puff 09/01/19 18:30 09/04/19 06:54 Dulera 200 Mcg/5 Mcg Inhaler INH 2 puff BID-RT CELESTE Administration Polyethylene Glycol 17 gm 09/02/19 08:30 09/02/19 10:38 Miralax PO 17 gm DAILYPRN PRN Administration CONSTIPATION Prednisone 40 mg 09/03/19 08:00 09/04/19 10:42 Prednisone PO 09/06/19 08:01 40 mg QAM-WM CELESTE Administration Scopolamine 1.5 mg 09/03/19 18:00 09/03/19 19:43 Transderm Scop TD 1.5 mg Q3D CELESTE Administration Sodium Chloride 10 ml 09/01/19 21:00 09/04/19 10:43 Flush - Normal Saline IVF 10 ml Q12HR CELESTE Administration Sodium Chloride 10 ml 09/01/19 09:30 09/01/19 10:42 Flush - Normal Saline IVF 10 ml PRN PRN Administration Saline Flush - Exam General Appearance: NAD, awake alert Eye: PERRL ENT: normocephalic atraumatic Neck: supple, symmetric Heart: RRR Respiratory: CTAB Gastrointestinal: normal bowel sounds Extremities: no cyanosis Neurological: no focal deficits Hosp A/P - Plan SIRS leukocytosis Bronchitis both infection and inflammation likely going on. Metastatic lung cancer --undergoing treatment w.. Dr. vargas --they have appt w.. dR. Vargas on saturday. Getting CT chest and consulted Dr. Vargas and will consider involving Dr. Major, pulmonary as well. DNR 13th RApid response called this am shortly after CT head done for not responding much. during my eval, vitals were stable. pt barely responding much. BP dropping. 1 li bolus and moved to monitored bed. Later around 1230pm , i visited him again. he responds for verbal stimulation. their wet roller and family member at bedside. prefers not to feed him via peg tube now. d/w RN. Will consider restarting his meds and TF if is agreeable with that. - though neuro consult not unreasonable, his overall prognosis is poor. He wound not handle MRI scan in his current status. -CT head did not show metastatic lesions. Appreciate the palliative involvement. 14th pt is much better today, AOx3; even able to tell me the street name where he lives. He could not recall what happened to him and does not know any prodromal sxs prior to being unresponsive. TF started. PT consult and may need post acute rehab pt has appt w.. Dr. vargas on saturday. will see how he does in the next few days. Ok to transfer to oncology floor.
[2019-09-04] MEDS: Atorvastatin Calcium 10 MG TAB PER TUBE SCH (21:56)
[2019-09-04] MEDS: Mirtazapine 30 MG TAB PER TUBE SCH (21:56)
[2019-09-05] MEDS: Diabetic Tussin 200 MG/10 ML UDCUP PER TUBE PRN ×2 (02:43→10:26)
[2019-09-05] MEDS: Acetaminophen 500 MG TAB PER TUBE PRN (04:08)
[2019-09-05] MEDS: Piperacillin/Tazobactam 3.375 GM in Sodium Chloride 0.9% 100 ML IVPB SCH ×3 (04:08→20:41)
[2019-09-05] MEDS: Mometasone/Formoterol 120 PUFF INHALER INH SCH ×2 (06:40→19:27)
[2019-09-05 06:45] LABS: Anion Gap 15 mmol/L (10-20); BUN (Urea Nitrogen) 8 mg/dL (8.4-25.7); Calc. Creatinine Clearance 93 mL/min (70-130); Calcium 9.1 mg/dL (7.8-10.44); Carbon Dioxide 21 mmol/L (23-31); Chloride 105 mmol/L (98-107); Estimated GFR-MDRD Greater than 90; Glucose 107 mg/dL (83-110); Magnesium 1.8 mg/dL (1.6-2.6); Potassium 3.8 mmol/L (3.5-5.1); Sodium 137 mmol/L (136-145)
[2019-09-05 06:52] LABS: Phosphorus 3.1 mg/dL (2.3-4.7)
[2019-09-05] MEDS: predniSONE 20 MG TAB PO SCH (10:22)
[2019-09-05] MEDS: guaiFENesin ER 600 MG TAB PO SCH ×2 (10:22→20:42)
[2019-09-05] MEDS: Enoxaparin Sodium 30 MG/0.3 ML SYRINGE SC SCH (10:23)
[2019-09-05] MEDS: Aspirin Chewable 81 MG TAB PER TUBE SCH (10:23)
[2019-09-05] MEDS: Vancomycin HCl 750 MG in Sodium Chloride 0.9% 250 ML 250 ML IVPB SCH ×2 (11:11→20:44)
--- NOTE | 2019-09-05 12:31 | PDOC.HOSPP ---
- Subjective Subjective: Seen and examined. Mentation is back to his baseline per his at bedside. Knows himself, knows he's in the hospital, knows the year is 2019, knows he has an infection with PNA. Patient's states that he has been tolerating applesauce consistency in the home setting with medications. They would like to work with speech therapy again to see if he can advance to swallow safely. Feeding tube in position without infection. Time was given for questions, all answered in detail. - Objective Vital Signs & Weight: Vital Signs (12 hours) Temp Pulse Resp BP Pulse Ox 09/05/19 12:28 97.3 F L 111 H 16 133/62 96 09/05/19 11:50 88 16 09/05/19 10:23 102 H 09/05/19 08:29 97.6 F 102 H 16 136/67 95 09/05/19 06:40 88 16 09/05/19 06:30 88 16 09/05/19 04:00 97.4 F L 97 20 140/63 97 Weight Admit Weight 123 lb 14.4 oz Weight 136 lb 8 oz Most Recent Monitor Data Heart Rate from ECG 96 NIBP 122/59 NIBP BP-Mean 80 Respiration from ECG 20 SpO2 100 I&O: 09/04/19 09/05/19 09/06/19 06:59 06:59 06:59 Intake Total 2938 1251 Balance 2938 1251 Result Diagrams: 09/02/19 03:47 09/05/19 05:45 Additional Labs: Accuchecks 09/05/19 12:17 POC Glucose 170 H Radiology Reviewed by me: Yes Hospitalist ROS - Review of Systems All other systems reviewed; all pertinent +/- noted in HPI/Subj - Medication Medications: Active Medications Generic Name Dose Route Start Last Admin Trade Name Freq PRN Reason Stop Dose Admin Acetaminophen 500 mg 09/01/19 05:46 09/02/19 09:53 Tylenol PER TUBE 500 mg Q6H PRN Administration Mild-Moderate Pain (1-5) Acetaminophen 1,000 mg 09/01/19 05:46 09/05/19 04:08 Tylenol PER TUBE 1,000 mg Q6H PRN Administration Moderate to Severe Pain (6-10) Albuterol/Ipratropium 3 ml 09/04/19 11:00 09/05/19 11:50 Duoneb EZPAP 3 ml [id number] CELESTE Administration Aspirin 81 mg 09/02/19 09:00 09/05/19 10:23 Aspirin Chewable PER TUBE 81 mg DAILY CELESTE Administration Atorvastatin Calcium 10 mg 09/01/19 21:00 09/04/19 21:56 Lipitor PER TUBE 10 mg QPM CELESTE Administration Diltiazem HCl 120 mg 09/02/19 09:00 09/05/19 10:23 Cardizem Cd PO 120 mg QAM CELESTE Administration Enoxaparin Sodium 30 mg 09/02/19 09:00 09/05/19 10:23 Lovenox SC 30 mg 0900 CELESTE Administration Guaifenesin 100 mg 09/01/19 05:59 09/05/19 10:26 Robitussin Sf PER TUBE 100 mg Q6H PRN Administration Cough Guaifenesin 1,200 mg 09/02/19 21:00 09/05/19 10:22 Mucinex PO 1,200 mg Q12HR CELESTE Administration Piperacillin Sod/Tazobactam 100 mls @ 200 mls/hr 09/03/19 04:00 09/05/19 04: 08 Sod 3.375 gm/ Sodium Chloride IVPB 100 mls 0400,1200,2000 CELESTE Administration Vancomycin HCl 750 mg/ Sodium 250 mls @ 250 mls/hr 09/05/19 09:00 09/05/19 11 :11 Chloride IVPB 250 mls Q12HR CELESTE Administration Iron/Minerals/Multivitamins 15 ml 09/02/19 09:00 09/04/19 10:42 Certa Gerard Liquid PER TUBE 15 ml DAILY CELESTE Administration Mirtazapine 30 mg 09/01/19 21:00 09/04/19 21:56 Remeron PER TUBE 30 mg HS CELESTE Administration Mometasone Furoate/Formoterol Fumar 2 puff 09/01/19 18:30 09/05/19 06:40 Dulera 200 Mcg/5 Mcg Inhaler INH 2 puff BID-RT CELESTE Administration Polyethylene Glycol 17 gm 09/02/19 08:30 09/02/19 10:38 Miralax PO 17 gm DAILYPRN PRN Administration CONSTIPATION Prednisone 40 mg 09/03/19 08:00 09/05/19 10:22 Prednisone PO 09/06/19 08:01 40 mg QAM-WM CELESTE Administration Scopolamine 1.5 mg 09/03/19 18:00 09/03/19 19:43 Transderm Scop TD 1.5 mg Q3D CELESTE Administration Sodium Chloride 10 ml 09/01/19 21:00 09/05/19 10:28 Flush - Normal Saline IVF 10 ml Q12HR CELESTE Administration Sodium Chloride 10 ml 09/01/19 09:30 09/05/19 04:09 Flush - Normal Saline IVF 10 ml PRN PRN Administration Saline Flush - Exam General Appearance: NAD Eye: PERRL, anicteric sclera ENT: normocephalic atraumatic, moist mucosa Neck: supple, symmetric, no lymphadenopathy Heart: no murmur, no gallops, no rubs Respiratory: no rales, no ronchi, normal chest expansion, no tachypnea, wheezes Gastrointestinal: soft, non-tender, no guarding, no rigidity Extremities: no edema Skin: no lesions, no rashes Neurological: cranial nerve grossly intact, no focal deficits Musculoskeletal: generalized weakness Psychiatric: normal affect, normal behavior, A&O x 3 Hosp A/P (1) Dysphagia Code(s): R13.10 - DYSPHAGIA, UNSPECIFIED Status: Acute (2) Physical deconditioning Code(s): R53.81 - OTHER MALAISE Status: Acute (3) Decreased oral intake Code(s): R63.8 - OTHER SYMPTOMS AND SIGNS CONCERNING FOOD AND FLUID INTAKE Status: Acute (4) 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 Code(s): C34.10 - MALIGNANT NEOPLASM OF UPPER LOBE, UNSP BRONCHUS OR LUNG Status: Chronic (5) Severe protein-calorie malnutrition Code(s): E43 - UNSPECIFIED SEVERE PROTEIN-CALORIE MALNUTRITION Status: Chronic (6) Dehydration Code(s): E86.0 - DEHYDRATION Status: Resolved - Plan Plan: medical/oncology unit oncology consultation, recommendations appreciated continue antibiotic therapy patient responding to antibiotic therapy and WBC count has normalized afebrile Altered mental status secondary to infection and has resolved with infection treatment MRI brain negative for metastatic disease or other acute process explain altered mental status continue other home medications as able blood pressure control blood sugar control G.I. prophylaxis DVT prophylaxis speech therapy consultation, recommendations appreciated okay to advance diet to cardiac starting diet with speech therapy to modify consistency as appropriate PT/ OT Eval and treat
--- NOTE | 2019-09-05 16:49 | PRG ---
DATE OF SERVICE: 09/05/2019 SUBJECTIVE: Mr. Pickering was sleeping today. He awakened while I was in the room. His says he is trying to catch up because he could not sleep last night because of a cough. He apparently does not tolerate any narcotics for cough. OBJECTIVE: VITAL SIGNS: Afebrile. Heart rate is 98, respiratory rate 14, oximetry is 94, blood pressure 132/63. LUNGS: Clear. HEART: Regular rhythm. ABDOMEN: Soft. Sodium 137, potassium 3.8, chloride 105, bicarb 21, BUN 8, creatinine 0.6. IMPRESSION: 1. Metastatic lung cancer. 2. Encephalopathy, resolved. 3. Cough. The EzPAP nebs have not really helped a whole lot. 4. The only option with a PEG in place is Ricardo MCLAUGHLIN. Maciesaldebora Perlbhanu cannot be crushed up. 5. Microbiology was reviewed. Urine grew a Staph epidermidis. Significance of this is unclear. Blood cultures are negative. Job ID: [id number]
[2019-09-05] MEDS: Atorvastatin Calcium 10 MG TAB PER TUBE SCH (20:42)
[2019-09-05] MEDS: Mirtazapine 30 MG TAB PER TUBE SCH (20:52)
[2019-09-06] MEDS: Piperacillin/Tazobactam 3.375 GM in Sodium Chloride 0.9% 100 ML IVPB SCH ×3 (03:31→22:08)
[2019-09-06 04:33] LABS: Anion Gap 11 mmol/L (10-20); BUN (Urea Nitrogen) 10 mg/dL (8.4-25.7); Calc. Creatinine Clearance 90 mL/min (70-130); Calcium 9.2 mg/dL (7.8-10.44); Carbon Dioxide 26 mmol/L (23-31); Chloride 106 mmol/L (98-107); Estimated GFR-MDRD Greater than 90; Glucose 105 mg/dL (83-110); Magnesium 1.9 mg/dL (1.6-2.6); Potassium 3.6 mmol/L (3.5-5.1); Sodium 139 mmol/L (136-145)
[2019-09-06] MEDS: Acetaminophen 500 MG TAB PER TUBE PRN ×2 (06:58→22:11)
[2019-09-06] MEDS: Mometasone/Formoterol 120 PUFF INHALER INH SCH ×2 (07:46→19:39)
[2019-09-06] MEDS: predniSONE 20 MG TAB PO SCH (09:00)
[2019-09-06] MEDS: guaiFENesin ER 600 MG TAB PO SCH (09:01)
[2019-09-06] MEDS: Enoxaparin Sodium 30 MG/0.3 ML SYRINGE SC SCH (09:01)
[2019-09-06] MEDS: Aspirin Chewable 81 MG TAB PER TUBE SCH (09:01)
[2019-09-06] MEDS: Vancomycin HCl 750 MG in Sodium Chloride 0.9% 250 ML 250 ML IVPB SCH ×2 (09:30→23:01)
--- NOTE | 2019-09-06 12:27 | RAD ---
EXAM: Modified barium swallow with speech therapist HISTORY: Feeding difficulties and dysphasia; history of lung cancer FINDINGS/IMPRESSION: A modified barium swallow was performed by the speech therapist. A video was performed. Aspiration wa s seen with thin liquids. Penetration was seen during the swallow with pudding thick diet. This may have been residua from the swallow with the thin liquids. Please see dedicated speech therapy report for specific findings and recommendations.
[2019-09-06] MEDS: Multivits W-Minerals Liquid 15 ML LIQ PER TUBE SCH ×2 (12:55→14:23)
--- NOTE | 2019-09-06 15:20 | PDOC.HOSPP ---
- Subjective Encounter Date: 09/06/19 Encounter Time: 15:15 Subjective: f/u for AMS likely due to dehydration and aspiration PNA in context of advanced lung CA tx with immunotherapy. Receiving Zosyn/Vancomycin. Failed the MBS today. - Objective Vital Signs & Weight: Vital Signs (12 hours) Temp Pulse Resp BP Pulse Ox 09/06/19 11:20 85 16 95 09/06/19 09:00 91 09/06/19 07:44 91 16 96 09/06/19 07:28 97.9 F 81 16 131/74 93 L 09/06/19 03:54 97.7 F 89 12 148/64 H 93 L Weight Admit Weight 123 lb 14.4 oz Weight 136 lb 8 oz Most Recent Monitor Data Heart Rate from ECG 96 NIBP 122/59 NIBP BP-Mean 80 Respiration from ECG 20 SpO2 100 I&O: 09/05/19 09/06/19 09/07/19 06:59 06:59 06:59 Intake Total 1251 1140 Balance 1251 1140 Result Diagrams: 09/02/19 03:47 09/06/19 04:01 Additional Labs: Accuchecks 09/05/19 18:05 POC Glucose 200 H Microbiology 08/31/19 23:10 Urine Straight Catheter Urine Culture - Final Staphylococcus epidermidis 08/31/19 23:10 Nasal swab Influenza Types A,B Direct EIA - Final 08/31/19 22:37 Venous blood - Right Hand Blood Culture - Final NO GROWTH IN 5 DAYS 08/31/19 22:37 Venous blood - Left Arm Blood Culture - Final NO GROWTH IN 5 DAYS Laboratory Tests 08/31/19 09/01/19 09/02/19 22:37 06:36 03:47 WBC 14.9 H 15.0 H Hgb 9.0 L 8.2 L Plt Count 464 H 458 H Neutrophils % 85.0 H 79.1 H 72.4 Phosphorus Magnesium 09/05/19 09/05/19 09/06/19 05:45 05:45 04:01 WBC Hgb Plt Count Neutrophils % Phosphorus 3.1 Magnesium 1.8 1.9 09/06/19 04:01 WBC Hgb Plt Count Neutrophils % Phosphorus 3.0 Magnesium Radiology Reviewed by me: Yes (MBS - aspiration on all consistencies) Hospitalist ROS - Medication Medications: Active Medications Generic Name Dose Route Start Last Admin Trade Name Freq PRN Reason Stop Dose Admin Acetaminophen 500 mg 09/01/19 05:46 09/06/19 06:58 Tylenol PER TUBE 500 mg Q6H PRN Administration Mild-Moderate Pain (1-5) Acetaminophen 1,000 mg 09/01/19 05:46 09/05/19 04:08 Tylenol PER TUBE 1,000 mg Q6H PRN Administration Moderate to Severe Pain (6-10) Albuterol/Ipratropium 3 ml 09/04/19 11:00 09/06/19 14:51 Duoneb EZPAP 3 ml [id number] CELESTE Administration Aspirin 81 mg 09/02/19 09:00 09/06/19 09:01 Aspirin Chewable PER TUBE 81 mg DAILY CELESTE Administration Atorvastatin Calcium 10 mg 09/01/19 21:00 09/05/19 20:42 Lipitor PER TUBE 10 mg QPM CELESTE Administration Diltiazem HCl 120 mg 09/02/19 09:00 09/06/19 09:00 Cardizem Cd PO 120 mg QAM CELESTE Administration Enoxaparin Sodium 30 mg 09/02/19 09:00 09/06/19 09:01 Lovenox SC 30 mg 0900 CELESTE Administration Guaifenesin 100 mg 09/01/19 05:59 09/05/19 10:26 Robitussin Sf PER TUBE 100 mg Q6H PRN Administration Cough Piperacillin Sod/Tazobactam 100 mls @ 200 mls/hr 09/03/19 04:00 09/06/19 14: 23 Sod 3.375 gm/ Sodium Chloride IVPB 100 mls 0400,1200,2000 CELESTE Administration Vancomycin HCl 750 mg/ Sodium 250 mls @ 250 mls/hr 09/05/19 09:00 09/06/19 09 :30 Chloride IVPB 250 mls Q12HR CELESTE Administration Iron/Minerals/Multivitamins 15 ml 09/02/19 09:00 09/06/19 14:23 Certa Gerard Liquid PER TUBE 15 ml DAILY CELESTE Administration Mirtazapine 30 mg 09/01/19 21:00 09/05/19 20:52 Remeron PER TUBE 30 mg HS CELESTE Administration Mometasone Furoate/Formoterol Fumar 2 puff 09/01/19 18:30 09/06/19 07:46 Dulera 200 Mcg/5 Mcg Inhaler INH 2 puff BID-RT CELESTE Administration Polyethylene Glycol 17 gm 09/02/19 08:30 09/02/19 10:38 Miralax PO 17 gm DAILYPRN PRN Administration CONSTIPATION Scopolamine 1.5 mg 09/03/19 18:00 09/03/19 19:43 Transderm Scop TD 1.5 mg Q3D CELESTE Administration Sodium Chloride 10 ml 09/01/19 21:00 09/06/19 10:59 Flush - Normal Saline IVF 10 ml Q12HR CELESTE Administration Sodium Chloride 10 ml 09/01/19 09:30 09/05/19 04:09 Flush - Normal Saline IVF 10 ml PRN PRN Administration Saline Flush - Exam General Appearance: NAD, awake alert Eye: PERRL, anicteric sclera ENT: normocephalic atraumatic Neck: supple, symmetric, no JVD Heart: RRR, no gallops, no rubs, normal peripheral pulses Respiratory - other findings: diminished with scattered rhonchi Gastrointestinal: soft, non-tender, non-distended, normal bowel sounds Extremities: no cyanosis, no clubbing Skin: normal turgor Neurological: cranial nerve grossly intact, no new deficit Musculoskeletal: generalized weakness Psychiatric: normal affect, A&O x 3 Hosp A/P (1) Aspiration pneumonia Code(s): J69.0 - PNEUMONITIS DUE TO INHALATION OF FOOD AND VOMIT Status: Acute Plan: Likely given the failure of the MBS, NPO status, continue PEG tube feeds for caloric requirements, continue Zosyn/Vancomycin (2) Dysphagia Code(s): R13.10 - DYSPHAGIA, UNSPECIFIED Status: Chronic Qualifiers: Dysphagia type: oropharyngeal phase Qualified Code(s): R13.12 - Dysphagia, oropharyngeal phase Plan: Persistent, aspiration confirmed on MBS, NPO status, PEG tube feeds (3) 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
[2019-09-06 20:22] LABS: Vancomycin, Trough 12.6 ug/mL
[2019-09-06] MEDS: Diabetic Tussin 200 MG/10 ML UDCUP PO SCH (22:06)
[2019-09-06] MEDS: Scopolamine 1.5 mg/72 hour Patch TD SCH (22:07)
[2019-09-06] MEDS: Atorvastatin Calcium 10 MG TAB PER TUBE SCH (22:09)
[2019-09-06] MEDS: Mirtazapine 30 MG TAB PER TUBE SCH (22:10)
[2019-09-07] MEDS: Piperacillin/Tazobactam 3.375 GM in Sodium Chloride 0.9% 100 ML IVPB SCH ×2 (05:05→13:53)
[2019-09-07 07:15] LABS: Phosphorus 2.8 mg/dL (2.3-4.7)
[2019-09-07] MEDS: Mometasone/Formoterol 120 PUFF INHALER INH SCH (07:17)
[2019-09-07 07:18] LABS: Anion Gap 11 mmol/L (10-20); BUN (Urea Nitrogen) 11 mg/dL (8.4-25.7); Calc. Creatinine Clearance 87 mL/min (70-130); Calcium 9.2 mg/dL (7.8-10.44); Carbon Dioxide 27 mmol/L (23-31); Chloride 106 mmol/L (98-107); Estimated GFR-MDRD Greater than 90; Glucose 101 mg/dL (83-110); Magnesium 1.9 mg/dL (1.6-2.6); Potassium 3.6 mmol/L (3.5-5.1); Sodium 140 mmol/L (136-145)
[2019-09-07 09:08] VITALS: BP 133/73; TEMP 98.1
[2019-09-07] MEDS: Vancomycin HCl 750 MG in Sodium Chloride 0.9% 250 ML 250 ML IVPB SCH (09:27)
[2019-09-07] MEDS: Diabetic Tussin 200 MG/10 ML UDCUP PO SCH (09:27)
[2019-09-07] MEDS: Multivits W-Minerals Liquid 15 ML LIQ PER TUBE SCH (09:28)
[2019-09-07] MEDS: Enoxaparin Sodium 30 MG/0.3 ML SYRINGE SC SCH (09:28)
[2019-09-07] MEDS: Aspirin Chewable 81 MG TAB PER TUBE SCH (09:28)
--- NOTE | 2019-09-07 10:59 | PDOC.EVN ---
Event Note - Event Note Event Note: Patient will need press tender long goods O2 supplementation due to progressive lung adenocarcinoma.
--- NOTE | 2019-09-07 11:14 | PRG ---
DATE OF SERVICE: 09/07/2019 SUBJECTIVE: The patient seems to be doing reasonably well. He is planning to go home today with home health. OBJECTIVE: VITAL SIGNS: His temperature is 98.1, pulse 98, respirations 16, O2 saturation 92% on 2 L. HEENT: Unremarkable. NECK: No adenopathy or JVD. LUNGS: Diminished breath sounds bilaterally. CARDIAC: S1 and S2. Regular. ABDOMEN: Soft. EXTREMITIES: No edema. LABORATORY DATA: Sodium 140, BUN 11, creatinine 0.6, glucose 101. ASSESSMENT: 1. Metastatic lung cancer. 2. Chronic hypoxic respiratory failure, requiring supplemental oxygen. PLAN: The patient is back to his baseline. He is going home. I do not suspect that he will do well at home. No further recommendations at this time. We will sign off. Job ID: [id number]
--- NOTE | 2019-09-07 13:45 | PDOC.PALPN ---
Palliative Progress Note - Subjective Awake, alert, at bedside. Denies complaints other than weakness. States "Im ready to go home". Admission occurred secondary to AMS from suspected dehydration and aspiration pneumonia, known lung cancer with mets. Subsequent event during the course of the hospitalization requiring intubation, patient successfully extubated and has returned to his baseline. - Objective Vital Signs: Vital Signs - Most Recent Temp Pulse Resp BP Pulse Ox 98.1 F 74 16 133/73 98 09/07/19 09:00 09/07/19 11:46 09/07/19 11:46 09/07/19 09:00 09/07/19 11:46 - Physical Exam Constitutional: cachectic, emaciated, ill appearing HEENT: EOMI, moist MMs Respiratory: no wheezing, diminished lung sound Cardiovascular: RRR, diminished peripheral pulses Gastrointestinal: non-tender, positive bowel sounds Musculoskeletal: no cyanosis, no clubbing, no edema, muscle wasting Neurology: moves all 4 limbs Skin: cap refill <2 seconds, fragile Psychiatric: A&O x 3 - Assessment (1) Palliative care encounter Code(s): Z51.5 - ENCOUNTER FOR PALLIATIVE CARE Current Visit: Yes Status: Acute (2) Dysphagia Code(s): R13.10 - DYSPHAGIA, UNSPECIFIED Current Visit: Yes Status: Chronic Qualifiers: Dysphagia type: oropharyngeal phase Qualified Code(s): R13.12 - Dysphagia, oropharyngeal phase (3) Physical deconditioning Code(s): R53.81 - OTHER MALAISE Current Visit: Yes Status: Acute (4) Decreased oral intake Code(s): R63.8 - OTHER SYMPTOMS AND SIGNS CONCERNING FOOD AND FLUID INTAKE Current Visit: No Status: Acute (5) 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 In visiting with the patient and , they are hopeful to follow up with Dr Devi and pursue any aggressive measures to palliate the cancer. Encouraged conversation in relation to "Hope for the Best and Plan for the worst", discussing what Mr Pickering may desire if there is not the option for palliative therapies with oncology. [40] minutes spent on this encounter with >50% of the time in counseling and coordination of care. - ROS Constitutional: weakness ENT: difficulty swallowing Respiratory: shortness of breath with extertion Cardiology: other (negative for palpitations, chest pain) Genitourinary: other (negative for constipation, diarrhea, nausea) Neurological: weakness, other
--- NOTE | 2019-09-07 14:03 | PDOC.EVN ---
Event Note - Event Note Event Note: Patient will transition to Jevity 1.5 from 1.2 due to need for higher caloric intake and recommendations from dietitian services.
--- NOTE | 2019-09-07 14:34 | PDOC.MOPN ---
Interval History: no complaints, wants to go home. - Vital Signs Vital Signs: Vital Signs (12 hours) Temp Pulse Resp BP Pulse Ox 09/07/19 11:46 74 16 98 09/07/19 09:28 98 09/07/19 09:08 92 L 09/07/19 09:00 98.1 F 98 16 133/73 88 L 09/07/19 08:00 94 L 09/07/19 07:16 90 14 97 Weight Admit Weight 123 lb 14.4 oz Weight 136 lb 8 oz Most Recent Monitor Data Heart Rate from ECG 96 NIBP 122/59 NIBP BP-Mean 80 Respiration from ECG 20 SpO2 100 - Physical Exam General: Alert, Oriented x3, No acute distress HEENT: Atraumatic, PERRLA, EOMI, Mucous membr. moist/pink Abdomen: Normal bowel sounds Extremities: No clubbing, No cyanosis, No edema, Normal pulses, No tenderness/ swelling Neurological: Normal speech Psych/Mental Status: Mental status NL - Labs Result Diagrams: 09/02/19 03:47 09/07/19 06:42 Lab results: Laboratory Results - last 24 hr 09/07/19 06:42: Phosphorus 2.8 09/07/19 06:42: Sodium 140, Potassium 3.6, Chloride 106, Carbon Dioxide 27, Anion Gap 11, BUN 11, Creatinine 0.64 L, Estimated GFR (MDRD) Greater than 90, Glucose 101, Calcium 9.2, Magnesium 1.9 09/07/19 06:17: POC Glucose 103 09/06/19 19:52: Vancomycin Trough 12.6 Status: lab reviewed by me A/P - Problem (1) 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 Devi.
[2019-09-07] MEDS: Diabetic Tussin 200 MG/10 ML UDCUP PER TUBE PRN (15:24)
[2019-09-07] MEDS: Acetaminophen 500 MG TAB PER TUBE PRN (15:24)
--- NOTE | 2019-09-08 02:41 | DIS ---
DATE OF ADMISSION: 09/01/2019 DATE OF DISCHARGE: 09/07/2019 DISCHARGE DIAGNOSES: 1. Aspiration pneumonia with suspected gram positive and gram negative cocci. 2. Dysphagia, severe. 3. 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 4. Acute on chronic hypoxic respiratory failure. 5. Severe protein-calorie malnutrition. 6. Deconditioning. CONSULTATIONS: 1. Medical Oncology Service. 2. Dr. Major with Pulmonology Critical Care Service. 3. Dr. Ed Cordova with Neurology Service. PERTINENT LABORATORY AND X-RAY FINDINGS: Sodium ranged between 131 to 140. Lactic acid level ranged between 0.9 to 1.4. CBC showed white blood cell count ranging between 10.7 to 15.0, hemoglobin ranging between 8.2 to 9.0. Blood cultures x2 dated 08/31/2019, showed no growth at 5 days. Influenza A and B antigen dated 08/31 2019, negative. Urine culture dated 08/31/2019, showed greater than 100,000 colonies of Staphylococcus epidermidis. Portable chest x-ray dated 08/31/2019, showed pleural and parenchymal densities in the right upper lobe consistent with metastatic lung carcinoma. CT of the chest dated 09/02/2019, showed bilateral pulmonary nodules increasing in size since prior exam with large necrotic right supraclavicular and infraclavicular lymph nodes. Findings suggestive of progression of metastatic process. Patchy densities in the left lung base. Interval increase in pericardial effusion. CT of the brain without contrast dated 09/03/2019, showed no acute intracranial process. MRI of the brain dated 09/03/2019, showed no acute intracranial process. Modified barium swallow examination dated 09/06/2019, showed aspiration with thin liquids and penetration with mechanical soft texture diet. HOSPITAL COURSE: The patient was initially admitted to the Medical Oncology Unit after presenting with altered mental status in the context of known metastatic adenocarcinoma of the lung, currently under immunotherapy with Keytruda. The patient was initially treated for suspected infectious process and metabolic encephalopathy with supportive management. The patient was placed on broad-spectrum IV antibiotic therapy with blood culture showing no growth as stated previously. CT of the chest did show progression of lung carcinoma when compared with prior exam findings. The patient was evaluated by Medical Oncology Service with recommendations for treatment of underlying infectious process and general supportive management. The patient also underwent neuroimaging due to altered mentation. However, the CT and MRI studies were negative as stated previously. The patient also underwent evaluation by the Speech Therapy Service due to concern for aspiration and dysphagia. The patient with current PEG tube, receiving tube feeds with Jevity, undergoing a modified barium swallow exam. The patient was noted with penetration and aspiration of thin liquids and mechanical soft texture diet. Recommendations were for n.p.o. status and continuation of tube feeds due to high risk for continued aspiration. The patient also was evaluated for home oxygen therapy with persistent mild hypoxemia with O2 saturations in the 86% to 88% range on room air. Overall, the patient did continue to tolerate nutritional support with Jevity 1.2, with recommendations to continue on a long-term basis. Overall, the patient did remain clinically stable during the hospital course and achieving baseline functional status. I have examined the patient at the time of discharge and discussed followup instructions. Family verbalized understanding and agreement ready for discharge on 09/07/2019. DISCHARGE MEDICATIONS: 1. Albuterol sulfate 2 puffs inhaled q.4 hours p.r.n.. 2. Lipitor 10 mg per PEG tube daily. 3. Diltiazem XT 120 mg per tube daily. 4. Advair Diskus one inhalation b.i.d. 5. Multivitamin one per PEG tube daily. 6. Amoxicillin/clavulanic acid 600 mg per 5 mL, 5 mL per PEG tube b.i.d. x10 days. 7. Enteric-coated aspirin 81 mg per PEG tube daily. 8. Guaifenesin DM 10 mL per PEG tube q.4 hours p.r.n. 9. Remeron 30 mg per PEG tube at bedtime. FOLLOWUP: The patient will follow up with his primary care provider, Dr. Adán Beavers. The patient will follow up with Dr. Reuben Devi with the [facility] and to call his office for appointment time and date. CONDITION ON DISCHARGE: Guarded. ACTIVITY: Ad laura rolling walker with standby/contact guard assistance. DIET: Jevity 1.2 through PEG tube route. N.p.o. status. SPECIAL INSTRUCTIONS: Continue Home Health Services including Physical Therapy and Speech Therapy. CODE STATUS: Do not attempt resuscitation. DISPOSITION: Home with [facility], 09/07/2019. TIME SPENT: Total time preparing and coordinating discharge is 38 minutes. Job ID: [id number]
--- NOTE | 2019-09-08 04:46 | PQF ---
DARRIN MODI CHARLES DO [id number] [id number] CLINICAL DOCUMENTATION CLARIFICATION FORM: POST DISCHARGE Addendum to original discharge summary date: ____ Late entry note date: __ Please query Dr. Gregory regarding the sepsis question. Thanks! Dr. Padilla DATE:09/08/2019 ATTN: Rafat Ochao Please exercise your independent, professional judgment in responding to the clarification form. Clinical indicators are provided on the bottom of this form for your review Please check appropriate box(es): [ ] Sepsis due to Aspiration Pneumonia [ ] Sepsis due to UTI [ ] SIRS due to non-infectious process (please specify etiology) [ ] with organ dysfunction [ ] without organ dysfunction [ ] Severe sepsis with acute organ dysfunction of: (Examples: respiratory failure, encephalopathy, acute kidney failure, other) [ ] Septic Shock [ ] Localized infection without sepsis [ ] Other diagnosis [ ] Unable to determine In addition, please specify: Present on Admission (POA): [ ] Yes [ ] No [ ] Unable to determine For continuity of documentation, please document condition throughout progress notes and discharge summary. Thank You. 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 She did not notice any facial droopiness. He has some congestion and had dry cough for last 3 to 4 days H&P p1 09/01 Dr Gregory Pt had elevated white count of 15,000, admitted with systemic inflammatory response syndrome, as well as metabolic encephalopathy ED Notes p1 08/31 reports fever HP p1 09/01 Dr Gregory systemic inflammatory response syndrome HP p1 09/01 Dr Gregory clinical history suggestive of SIRS syndrome H&P p2 09/01 Metabolic Encephalopathy Consult p3 09/02 Acute hypoxic respiratory Failure PN p1 09/02 Dr Gregory WBCs trend could be infectious and or inflammatory Query Response p1 09/03 Dr. 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 Medical oncology p2 09/03 Severe protein-calorie malnutrition DS p1 09/07 Aspiration Pneumonia with suspected gram postive and gram negative cocci TREATMENTS: SEP 20 IV Vancomycin 1gm SEP 20 IV Levaquin 750mg SEP 20 IV Cefepime 2gm SEP 20 IV Zosyn 3.3758gm SEP 20 IVF 1L SEP 20 Prednisone 40mg po SEP 20 DuoNeb 3ml neb SEP 20 Mucinex 1200mg po H&P p2 09/01 Blood and urine cultured ordered Oncology Consult 09/02 [facility] Pulmonary Consult 09/02 Martin Major Respiratory panel Oxygen 2L Collected 08/31 Chest Xray ED Notes p1 08/31 Sepsis Protocol initiated (This form is maintained as a part of the permanent medical record) 2014 [employer] All Rights Reserved [email or web address]
--- NOTE | 2019-09-10 16:40 | EKG ---
Test Reason : Blood Pressure : / mmHG Vent. Rate : 106 BPM Atrial Rate : 106 BPM P-R Int : 128 ms QRS Dur : 082 ms QT Int : 330 ms P-R-T Axes : 075 029 066 degrees QTc Int : 438 ms Sinus tachycardia Otherwise normal ECG Confirmed by APOLLO MARTIN DO ([id number]), make up editor MIKALA GOMEZ ([id number]) on 09/10/2019 4:40:32 PM Referred By: Confirmed By:APOLLO MARTIN DO
== END 2019-09-07 03:45 | disposition home health service (06) | DRG 177 ==
LOC: ERS 22:18 → ONC 09-01 00:57 → IMCU/EMU 09-03 09:56 → ONC 09-04 14:21
PROVIDERS: ADMIT Internal Medicine; ATTEND Internal Medicine
DX: J69.0 Pneumonitis due to inhalation of food and vomit (principal); E43 Unspecified severe protein-calorie malnutrition; J96.21 Acute and chronic respiratory failure with hypoxia; G93.41 Metabolic encephalopathy; C77.9 Secondary and unspecified malignant neoplasm of lymph node, unspecified; N39.0 Urinary tract infection, site not specified; C34.11 Malignant neoplasm of upper lobe, right bronchus or lung; R65.10 Systemic inflammatory response syndrome (SIRS) of non-infectious origin without acute organ dysfunction; Z66 Do not resuscitate; Z51.5 Encounter for palliative care; J15.6 Pneumonia due to other Gram-negative bacteria; J15.9 Unspecified bacterial pneumonia; N40.1 Benign prostatic hyperplasia with lower urinary tract symptoms; R33.8 Other retention of urine; E78.5 Hyperlipidemia, unspecified; E11.9 Type 2 diabetes mellitus without complications; B95.61 Methicillin susceptible Staphylococcus aureus infection as the cause of diseases classified elsewhere; E86.0 Dehydration; R13.12 Dysphagia, oropharyngeal phase; I10 Essential (primary) hypertension; N39.498 Other specified urinary incontinence; Z79.899 Other long term (current) drug therapy; Z79.51 Long term (current) use of inhaled steroids; Z79.82 Long term (current) use of aspirin; Z79.84 Long term (current) use of oral hypoglycemic drugs; Z88.5 Allergy status to narcotic agent; Z88.8 Allergy status to other drugs, medicaments and biological substances; Z93.1 Gastrostomy status; Z68.21 Body mass index [BMI] 21.0-21.9, adult
CPT/HCPCS: 36415; 36416; 51701; 70470; 70553; 71045; 71260; 74230; 80048; 80053; 80202; 81003; 81015; 83605; 83735; 84100; 84484; 85025; 87040; 87077; 87086; 87186; 87804; 93005; 93010; 94640; 96365; 96366; 96367; A9579; J0692; J1642; J1650; J1956; J2543; J3370; J3480; J3490; J7050; J7512; J7620; Q9967